=== PATIENT | female | born 1950 | race Caucasian/White ===

== ENCOUNTER 2022-01-26 09:12 | Outpatient (CLI) | payer MEDICARE, SELFPAY ==
--- NOTE | 2022-01-26 12:00 | NEURO_ITS ---
Impression: # Complains of numbness of lower extremities. # Normal nerve conduction study including peroneal and posterior tibial nerves. # Normal needle/EMG exam. # Clinical correlation recommended. Nerve Conduction Studies Anti Sensory Summary Table Stim Site NR Peak (ms) P-T Amp (?V) Site1 Site2 Delta-P (ms) Dist (cm) Wander (m/s) Left Sup Fibular Anti Sensory (Ant Lat Mall) 14 cm 4.0 3.8 14 cm Ant Lat Mall 4.0 16.0 40 Right Sup Fibular Anti Sensory (Ant Lat Mall) 14 cm 3.4 22.5 14 cm Ant Lat Mall 3.4 16.0 47 Left Sural Anti Sensory (Lat Mall) Calf 3.8 5.5 Calf Lat Mall 3.8 16.0 42 Right Sural Anti Sensory (Lat Mall) Calf 3.5 20.2 Calf Lat Mall 3.5 16.0 46 Motor Summary Table Stim Site NR Onset (ms) O-P Amp (mV) Site1 Site2 Delta-0 (ms) Dist (cm) Wander (m/s) Left Peroneal Motor (Vastus Med) Ankle 3.8 2.9 Popit Ankle 7.7 39.0 51 Popit 11.5 1.9 Right Peroneal Motor (Vastus Med) Ankle 4.1 1.2 Popit Ankle 7.9 38.0 48 Popit 12.0 1.3 Left Tibial Motor (Abd Carter Brev) Ankle 4.3 6.7 Knee Ankle 9.0 40.0 44 Knee 13.3 2.8 Right Tibial Motor (Abd Carter Brev) Ankle 4.0 7.4 Knee Ankle 9.2 39.0 42 Knee 13.2 3.3 F Wave Studies NR F-Lat (ms) L-R F-Lat (ms) Left Peroneal (Mrkrs) (EDB) 53.91 1.17 Right Peroneal (Mrkrs) (EDB) 52.73 1.17 Left Tibial (Mrkrs) (Abd Hallucis) 53.76 2.80 Right Tibial (Mrkrs) (Abd Hallucis) 56.56 2.80 EMG Side Muscle Nerve Root Ins Act Fibs Amp Dur Recrt Comment Right AntTibialis Dp Br Fibular L4-5 Nml Nml Nml Nml Nml Right Gastroc Tibial S1-2 Nml Nml Nml Nml Nml Right Fibularis Long Sup Br Fibular L5-S1 Nml Nml Nml Nml Nml Right Flex Dig Long Tibial L5-S2 Nml Nml Nml Nml Nml Right Ext Dig Brev Dp Br Fibular L5, S1 Nml Nml Nml Nml Nml Left AntTibialis Dp Br Fibular L4-5 Nml Nml Nml Nml Nml Left Gastroc Tibial S1-2 Nml Nml Nml Nml Nml Left Fibularis Long Sup Br Fibular L5-S1 Nml Nml Nml Nml Nml Left Flex Dig Long Tibial L5-S2 Nml Nml Nml Nml Nml Left Ext Dig Brev Dp Br Fibular L5, S1 Nml Nml Nml Nml Nml MTDD
== END 2022-01-26 09:13 | disposition home or self-care (01) ==
PROVIDERS: PCP Family Medicine; Visit Provider Psychiatry & Neurology Neurology
DX: G62.9 Polyneuropathy, unspecified (principal)
CPT/HCPCS: 95886; 95910

== ENCOUNTER 2024-03-06 08:05 | Outpatient (CLI) | payer MEDICARE, SELFPAY ==
--- NOTE | ~2024-03-06 | MR_ITS ---
MRI of the brain Clinical History: Migraine Technique: Axial and sagittal T1-weighted images were acquired. These were followed by axial T2-weigh jaime, diffusion weighted, gradient, and FLAIR images. Findings: There is no acute infarct, intracranial hemorrhage or mass lesion. There are several small scattered foci of hyperintense FLAIR signal in the periventricular and subcortical white matter bilat erally, most compatible with minimal chronic microvascular ischemic change. Ventricles and some arachnoid spaces are unremarkable. Orbits are unremarkable. Paranasal sinuses and mastoid air cells are clear. Major intracranial flow voids are intact. Sagittal midline structures are intact. IMPRESSION: No acute infarct, intracranial hemorrhage, or mass lesion. Probable minimal chronic microvascular ischemic change, as detailed above. Reviewed, dictated and finalized at location .
== END 2024-03-06 08:06 ==
LOC: GOSHIMG 08:08
PROVIDERS: Visit Provider Student in an Organized Health Care Education/Training Program
DX: G43.909 Migraine, unspecified, not intractable, without status migrainosus (principal)
CPT/HCPCS: 70551

== ENCOUNTER 2024-10-12 10:12 | Emergency (ER) | payer MEDICARE, SELFPAY ==
[2024-10-12] VITALS (15 sets, daily range): BP systolic 101–121; BP diastolic 60–70; PULSE 54–62; RESP 13–19; TEMP 36.4–36.7; O2SAT 96–100
--- NOTE | ~2024-10-12 | XR_ITS ---
CHEST RADIOGRAPH CLINICAL HISTORY: Lt. side chest pain x1 day . COMPARISON: None available TECHNIQUE: Single portable view of the chest. FINDINGS The cardiomediastinal silhouette is unremarkable. The lungs are clear. Visualized osseous structures and soft tissues are unremarkable. IMPRESSION: No focal infiltrate or effusion. Reviewed, dictated and finalized at location A. ARY CUSTOMER SERVICE CLERK
--- OUTSIDE RECORDS SUMMARY | 2024-10-12 10:15 | XMS_ITS | Clinical Summary ---
Author Organization [facility] Address [address] [place] [address] Care Team Providers Care Chief Environmental Commitment Officer Name Role Phone Zuleyma Motley MD Primary Care Provider [phone] Allergies Active Allergy Reactions Criticality Noted Date Comments Tape Unknown 12/27/2021 Ciprofloxacin Unknown 12/27/2021 Venlafaxine Unknown 03/07/2019 Medications multi vitamin/minera ls tablet Take 1 tablet by mouth daily. Active glucosamine-ch ondroitin 500-400 MG Cap Take 1 capsule by mouth daily. Active magnesium oxide 250 MG tablet Take 1 tablet (250 mg total) by mouth 2 (two) times daily. Active cyclobenzaprin e 10 MG tablet Take 0.5 tablets (5 mg total) by mouth nightly at bedtime. Active rosuvastatin 5 MG tablet Take 1 tablet (5 mg total) by mouth nightly at bedtime. 0 Active UBRELVY 100 MG tablet Take 1 tablet (100 mg total) by mouth 2 (two) times daily as needed for Migraine. On hold 2 Active triamcinolone 0.1 % cream APPLY CREAM TWO TIMES DAILY NEEDED 2 Active AIMOVIG, 140 MG DOSE, 70 MG/ML Solution Auto-injector 2 Active meclizine (ANTIVERT) 25 MG tablet 1-2 tablets three times a day as needed for dizziness 20 tablet 3 Active polyethylene glycol (GLYCOLAX) packet Take 240 mLs (17 g total) by mouth every other day. Dissolve powder in 240 mL water Active dexlansoprazol e (DEXILANT) 60 MG capsule Take 1 capsule (60 mg total) by mouth daily. Active mirtazapine (REMERON) 7.5 MG Tab tablet Take 1 tablet (7.5 mg total) by mouth daily. 4 Active cholestyramine (QUESTRAN) 4 GM/DOSE powder Take 1 packet (4 g total) by mouth daily. Active loratadine (CLARITIN) 10 MG tablet Take 1 tablet (10 mg total) by mouth daily. Active lisinopril (PRINIVIL) 2.5 MG tablet Take 1 tablet (2.5 mg total) by mouth daily. 90 tablet 5 Active aspirin EC (ECOTRIN) 81 MG tablet Take 1 tablet (81 mg total) by mouth daily. Active metoprolol succinate ER (TOPROL XL) 12.5 mg TABLET SR 24 HR 24 hr tablet Take 1 split tab (12.5 mg total) by mouth daily. 45 split tab 3 5 Active timolol (TIMOPTIC) 0.5 % ophthalmic solution Place 1 drop into both eyes 2 (two) times daily. 09/14/19 25 Discontinue d(Discontin ued by another clinician) metoprolol succinate ER (TOPROL XL) 12.5 mg TABLET SR 24 HR 24 hr tablet Take 1 split tab (12.5 mg total) by mouth daily. 45 split tab 1 5 09/17/19 25 Discontinue d(Reorder) Active Problems Problem Noted Date Diagnosed Date NSTEMI (non-ST elevated myoc ardial infarction) ([facility]) 08/18/2024 Encounters Date Type Department Care Team Description 10/02/2024 Telephone [facility] [facility] [address] [place] [address] Estela Mera, ANP-BC Lab Results 10/01/2024 8:17 AM PROCUREMENT REPRESENTATIVE - 10/01/2024 11:59 PM [facility] Hospital Encounter [facility] [address] [place] [address] Estela Mera, ANP-BC Discharge Disposition: Home or Self Care (Routine Discharge) 10/01/2024 Travel 09/26/2024 Telephone [facility] [address] [place] [address] Estela Mera, ANP-BC Record Request ([facility]) 09/17/2024 Telephone [facility] [address] [place] [phone] [phone] Estela Mera, ANP-BC Refill Request; Question 09/15/2024 Telephone [facility] [address] [place] [phone] [phone] Estela Mera, ANP-BC Schedule Test 09/10/2024 2:24 PM PROCUREMENT REPRESENTATIVE - 09/10/2024 11:59 PM PROCUREMENT REPRESENTATIVE Hospital Encounter [facility] [address] [facility] [place] [address] Estela Mera, ANP-BC Discharge Disposition: Home or Self Care (Routine Discharge) 09/10/2024 Travel 09/08/2024 2:30 PM PROCUREMENT REPRESENTATIVE Office Visit [facility] [address] [place] [address] Estela Mera, ANP-BC Follow Up 09/08/2024 Travel 08/29/2024 Telephone [facility] [address] [place] [address] Marisela Ryamond MD Question 08/18/2024 4:07 PM PROCUREMENT REPRESENTATIVE - 08/20/2024 11:15 AM PROCUREMENT REPRESENTATIVE Hospital Encounter [facility] [address] [place] [address] Sea Wadsworth MD Sonani, Bhavin V., MD Yaseen, Maryam, MD Discharge Disposition: Home or Self Care (Routine Discharge) 08/18/2024 11:09 AM PROCUREMENT REPRESENTATIVE - 08/18/2024 2:30 PM PROCUREMENT REPRESENTATIVE Emergency [facility] [address] [place] [address] Kathy Ibrahim DO Urinary Frequency; Chest Pain Discharge Disposition: Transfer to Acute Care Hospital 08/18/2024 Travel from Last 3 Months Immunizations Name Administration Dates Next Due Tdap (Boostrix) 06/16/2023 Family History Medical History Relation Comments Cancer Brother Alcohol Abuse Father Arthritis Father Diabetes Father Heart Disease Father Kidney Disease Father Vision loss Maternal Grandmother Depression Mother Heart Disease Mother Mental Health Mother Relation Status Comments Brother Father Maternal Grandmother Mother Social History Tobacco Use Types Packs/Day Years Used Date Smoking Tobacco: Never Smokeless Tobacco: Never Tobacco Cessation:Counseling Given: Not Answered Alcohol Use Standard Drinks/Week Comments No 0 (1 standard drink = 0.6 oz pur e alcohol) B1300 Health Literacy Answer Date Recor ded How often do you need to hav e someone help you when you read instructions, pamphlets, or other written material from your doctor or pharmacy? Never 08/18/2024 [facility] Utilities Answer Date Recorded In the past 12 months has [facility] [employer], oil, or water [employer] threatened to shut off services in your home? No 08/18/2024 Humiliation, Afraid, Rape, and Kick questionnair e Answer Date Recorded Within the last year, have y ou been afraid of your partner or ex-partner? No 08/18/2024 Within the last year, have y ou been humiliated or emotionally abused in other ways by your partner or ex-partner? No Within the last year, have y ou been kicked, hit, slapped, or otherwise physically hurt by your partner or ex-partner? No 08/18/2024 Within the last year, have y ou been raped or forced to have any kind of sexual activity by your partner or ex-partner? No 08/18/2024 AUDIT-C Answer Date Recorded Q1: How often do you have a drink containing alcohol? Never 08/18/2024 Q2: How many drinks containi ng alcohol do you have on a typical day when you are drinking? Patient does not drink Q3: How often do you have si x or more drinks on one occasion? Never 08/18/2024 Overall Financial Resource Strain (CARDIA) Answe r Date Recorded How hard is it for you to pa y for the very basics like food, housing, medical care, and heating? Not hard at all 08/18/2024 Hunger Vital Sign Answer Date Recorded Within the past 12 months, y ou worried that your food would run out before you got the money to buy more. Never true 08/18/20 24 Within the past 12 months, t he food you bought just didn't last and you didn't have money to get more. Never true 08/18/2024 PRAPARE - Transportation Answer Date Re corded In the past 12 months, has l ack of transportation kept you from medical appointments or from getting medications? No 07/28 In the past 12 months, has l ack of transportation kept you from meetings, work, or from getting things needed for daily living? No 08/18/2024 Housing Stability Vital Sign Answer Jorge e Recorded In the last 12 months, was t here a time when you were not able to pay the mortgage or rent on time? No 08/18/2024 In the past 12 months, how m any times have you moved where you were living? 0 08/18/2024 At any time in the past 12 m [facility], were you homeless or living in a fci (including now)? No 08/18/2024 Comments No Sex and Gender Information Value Date Recorded Sex Assigned at Female 09/10/2024 2:22 PM PROCUREMENT REPRESENTATIVE Legal Sex Female 10:54 PM PROCUREMENT REPRESENTATIVE Gender Identity Female 11/01/2021 6:23 AM PROCUREMENT REPRESENTATIVE Sexual Orientation Straight 11/01/2021 6: 23 AM PROCUREMENT REPRESENTATIVE Last Filed Vital Signs Vital Sign Reading Time Taken Comments Blood Pressure 110/60 09/08/2024 2:40 PM PROCUREMENT REPRESENTATIVE Pulse 56 09/08/2024 2:35 PM PROCUREMENT REPRESENTATIVE Temperature 36.6 C (97.9 F) 08/20/2024 7:33 AM PROCUREMENT REPRESENTATIVE Respiratory Rate 16 09/08/2024 2:35 PM PROCUREMENT REPRESENTATIVE Oxygen Saturation 100% 08/20/2024 7:33 AM PROCUREMENT REPRESENTATIVE Inhaled Oxygen Concentration - - Weight 56.7 kg (125 lb) 09/08/2024 2:35 PM PROCUREMENT REPRESENTATIVE Height 162.6 cm (5' 4 ) 09/08/2024 2:35 PM PROCUREMENT REPRESENTATIVE Body Mass Index 21.46 09/08/2024 2:35 PM PROCUREMENT REPRESENTATIVE Plan of Treatment Upcoming Encounters Date Type Department Care Team (Late st Contact Info) Description 10/13/2024 3:00 PM PROCUREMENT REPRESENTATIVE Appointment [facility] [address] [place] [address] Estela Mrea, ANP-BC [address] [place] [address] 11/11/2024 9:[address] [facility] [address] [place] [address] Madalyn Mackenzie, PA-C [address] [place] [address] Health Maintenance Due Date Last Done Comments ASCVD LDL 1950 ASCVD Statin 1950 Pneumococcal Vaccine: 65+ Years (1 of 2 - PCV) 1958 RSV Immunization or 60+ Years (1 - Risk 60-74 years 1-dose series) 2012 Annual Medicare Wellness Visit 2017 Zoster Vaccines (2 of 2) 11/05/2019 09/10/2019 COVID-19 Vaccine ( season) 2024 06/03/2021, 11/05/2020, 10/15/2020 Influenza Adult (#1) 2024 06/12/2017 Mammogram Screening 11/05/2025 11/06/2023, 11/02/2022, 11/01/2021, Additional history exists Colorectal Cancer Screening Colonoscopy (10 Years) 01/04/2032 01/03/2022, 01/03/2022 DTaP, Tdap and Td Vaccines (2 - Td or Tdap) 06/16/2033 06/16/2023 Dexa Scan (General) Completed 11/28/2022, Hepatitis C Completed 02/21/2024, 02/21/2024 Meningococcal B Vaccine Aged Out No l onger eligible based on patient's age to complete this topic Meningococcal Vaccine Aged Out No harika meg eligible based on patient's age to complete this topic RSV Immunizations Under 20 Months Aged Out No longer eligible based on patient's age to complete this topic Procedures Procedure Name Priority Date/Time Associated Diagnosis Comments BASIC METABOLIC PANEL Routine 10/01/2024 8:24 AM PROCUREMENT REPRESENTATIVE Takotsubo cardiomyopathy Coronary artery disease involving tejon coronary artery of tejon heart without angina pectoris Abnormal kidney function BASIC METABOLIC PANEL Routine 09/10/2024 2:40 PM PROCUREMENT REPRESENTATIVE Coronary artery disease involving tejon coronary artery of tejon heart without angina pectoris Takotsubo cardiomyopathy PROTHROMBIN TIME, VENOUS Routine 08/20/2024 6:48 AM PROCUREMENT REPRESENTATIVE CBC, AUTO, NO DIFF Routine 08/20/2024 6: 48 AM PROCUREMENT REPRESENTATIVE BASIC METABOLIC PANEL Routine 08/20/2024 6:48 AM PROCUREMENT REPRESENTATIVE USE ECHOCARDIOGRAM W CON Today 08/19/2024 11:20 AM PROCUREMENT REPRESENTATIVE XA LHC POSS Today 08/19/2024 8:58 AM PROCUREMENT REPRESENTATIVE HEPARIN, ANTI XA, UFH TIMED 08/19/2024 6:31 AM PROCUREMENT REPRESENTATIVE PROTHROMBIN TIME, VENOUS Routine 08/19/2024 6:31 AM PROCUREMENT REPRESENTATIVE MAGNESIUM Routine 08/19/2024 6:31 AM PROCUREMENT REPRESENTATIVE BASIC METABOLIC PANEL Routine 08/19/2024 6:31 AM PROCUREMENT REPRESENTATIVE CBC W/DIFF AUTOMATED Routine 08/19/2024 6:31 AM PROCUREMENT REPRESENTATIVE HEPARIN, ANTI XA, UFH TIMED 08/19/2024 12:02 AM PROCUREMENT REPRESENTATIVE TROPONIN, QUANT TIMED 08/19/2024 12:02 AM PROCUREMENT REPRESENTATIVE PROTHROMBIN TIME, VENOUS STAT 08/18/2024 5:01 PM PROCUREMENT REPRESENTATIVE HEPARIN, ANTI XA, UFH STAT 08/18/2024 5:01 PM PROCUREMENT REPRESENTATIVE TROPONIN, QUANT TIMED 08/18/2024 5:01 PM PROCUREMENT REPRESENTATIVE ECG 12-LEAD Routine 08/18/2024 4:53 PM PROCUREMENT REPRESENTATIVE TROPONIN, QUANT STAT 08/18/2024 1:12 PM PROCUREMENT REPRESENTATIVE HC URINALYSIS AUTO W/MICRO STAT 08/18/2024 12:50 PM PROCUREMENT REPRESENTATIVE XR CHEST PA+LAT STAT 08/18/2024 12:[address] ABD+PEL W CON STAT 08/18/2024 11:5 8 AM PROCUREMENT REPRESENTATIVE CRITICAL CARE Routine 08/18/2024 11:41 AM PROCUREMENT REPRESENTATIVE HEPARIN, ANTI XA, UFH STAT 08/18/2024 11:41 AM PROCUREMENT REPRESENTATIVE TROPONIN, QUANT STAT 08/18/2024 11:41 AM PROCUREMENT REPRESENTATIVE LIPASE STAT 08/18/2024 11:41 AM PROCUREMENT REPRESENTATIVE COMPREHENSIVE METABOLIC PANEL STAT 08/18/2024 11:41 AM PROCUREMENT REPRESENTATIVE CBC W/DIFF AUTOMATED STAT 08/18/2024 11:41 AM PROCUREMENT REPRESENTATIVE PROTHROMBIN TIME, VENOUS STAT 08/18/2024 11:40 AM PROCUREMENT REPRESENTATIVE ECG 12-LEAD Routine 08/18/2024 11:17 AM PROCUREMENT REPRESENTATIVE MG SCREENING W BRUCE LORENE DIGI Routine 11/06/2023 8:54 AM CDT Visit for screening mammogram BONE DENSITY/DEXA Routine 11/28/2022 9:3 4 AM CDT Post-menopausal COLONOSCOPY 01/03/2022 6:52 AM CDT from Last 3 Months or Most Recently Relevant to Health Maintenance Results * (ABNORMAL) BASIC METABOLIC PANEL (10/01/2024 8:24 AM [facility]) Only the most recent of4 resultswithin the time period is included. SODIUM S/P/B 133(L) 136 - 145 MMOL/L 10/01/2024 8:40 AM [facility] POTASSIUM S/P/B 4.6 3.5 - 5.1 MMOL/L 10/01/2024 8:40 AM [facility] CHLORIDE S/P/B 97(L) 98 - 107 MMOL/L 10/01/2024 8:40 AM [facility] CO2 29.3 21.0 - 32.0 MMOL/L 10/01/2024 8:40 AM [facility] GLUCOSE 85 70 - 99 MG/DL 10/01/2024 8:40 AM [facility] Comment: FASTING GLUCOSE 100 TO 125 MG/DL IS CONSISTENT WITH IMPAIRED FASTING GLUCOSE. FASTING GLUCOSE >125 MG/DL IS CONSISTENT WITH DIABETES. RANDOM GLUCOSE >200 MG/DL WITH HYPERGLYCEMIC SYMPTOMS IS CONSISTENT WITH DIABETES. PER ADA GUIDELINES BUN 11 6 - 24 MG/DL 10/01/2024 8:40 AM [facility] CREATININE S/P/B 0.72 0.55 - 1.02 MG/DL 10/01/2024 8:40 AM [facility] CALCIUM S/P/B 9.1 8.4 - 10.5 MG/DL 10/01/2024 8:40 AM [facility] ANION GAP 6.7 5.0 - 15.0 MMOL/L 10/01/2024 8:40 AM [facility] OSMOLALITY (CALC) 275 MOSM/KG 025 8:40 AM [facility] Comment:REFERENCE RANGE NOT ESTABLISHED GFR ESTIMATE 89(L) >89 ML/MIN/1. 73 M2 10/01/2024 8:40 AM [facility] GFR NOTES GFR REFERENCE S: 10/01/2024 8:40 AM [facility] Comment: THE ESTIMATED GFR IS CALCULATED USING THE 2020 CKD-EPI EQUATION. THE FOLLOWING CATEGORIES FOR GRADING RENAL FUNCTION ARE RECOMMENDED BY THE INTERNATIONAL SOCIETY OF NEPHROLOGY (KDIGO 2012 CLINICAL PRACTICE GUIDELINE). G1,NORMAL OR HIGH: >89 ml/min/1.73 m2 G2,MILDLY DECREASED: 60-89 ml/min/1.73 m2 G3A,MILDLY TO MODERATELY DECREASED: 45-59 ml/min/1.73 m2 G3B,MODERATELY TO SEVERELY DECREASED: 30-44 ml/min/1.73 m2 G4,SEVERELY DECREASED: 15-29 ml/min/1.73 m2 G5,KIDNEY FAILURE: <15 ml/min/1.73 m2 10/01/2024 8:24 AM PROCUREMENT REPRESENTATIVE Estela Mera [facility] Final Re sult [facility] [address] [place] [address], * PROTIME/INR, VENOUS (PROTHROMBIN TIME) (08/20/2024 6:48 AM PROCUREMENT REPRESENTATIVE) Only the most recent of4 resultswithin the time period is included. PROTIME 10.9 9.4 - 12.5 SEC 08/20/2024 7:21 AM PROCUREMENT REPRESENTATIVE [facility] INR 0.9 0.8 - 1.1 08/20/2024 7:21 AM PROCUREMENT REPRESENTATIVE [facility] 08/20/2024 6:48 AM PROCUREMENT REPRESENTATIVE Pallavi Montoya MD LABORATORY Final Result [facility] [address] [place] [address], [place] [phone] [id number] * (ABNORMAL) CBC, AUTO, NO DIFF (08/20/2024 6:48 AM PROCUREMENT REPRESENTATIVE) WBC 4.29 4.00 - 10.80 x10'3/uL 08/20/2024 6:58 AM PROCUREMENT REPRESENTATIVE [facility] RBC 3.92(L) 4.10 - 5.40 x10'6/uL 08/20/2024 6:58 AM PROCUREMENT REPRESENTATIVE [facility] HGB 12.5 12.0 - 16.0 G/DL 08/20/2024 6:58 AM [facility] HCT 36.9 36.0 - 47.0 % 08/20/2024 6:58 AM PROCUREMENT REPRESENTATIVE [facility] MCV 94.1 78.0 - 100.0 FL 08/20/2024 6:58 AM PROCUREMENT REPRESENTATIVE [facility] MCH 31.9(H) 27.0 - 31.0 PG 08/20/2024 6:58 AM PROCUREMENT REPRESENTATIVE [facility] MCHC 33.9 33.0 - 36.0 G/DL 08/20/2024 6:58 AM [facility] RDW 12.7 11.5 - 14.5 % 08/20/2024 6:58 AM [facility] PLT SEE NOTE 150 - 350 x10'3/uL 08/20/2024 7:14 AM PROCUREMENT REPRESENTATIVE [facility] Comment: Platelet clumps present. Estimate from slide appears to be within normal range. Reorder Platelet Count if actual value is clinically significant. 08/20/2024 6:48 AM PROCUREMENT REPRESENTATIVE Pallavi Montoya MD LABORATORY Final Result [facility] [address] [place] [address], [id number] * USE ECHOCARDIOGRAM W CON (08/19/2024 11:20 AM PROCUREMENT REPRESENTATIVE) Anatomical Region Laterality Modality NA Echocardiogram 08/19/2024 10:1 1 AM PROCUREMENT REPRESENTATIVE Narrative 08/19/2024 6:08 PM PROCUREMENT REPRESENTATIVE Echocardiography Report Pat.Name: LATOSHA HERNÁNDEZ Pat.ID: [id number] .Date: 08/19/2024 : [id number] PATRICE HADPROV EWDPROV Exam Time: 10:11:00 AM Study Type:ECHO W/CONTRAST COMPLETE Height: 64 in Weight: 123 lb BSA: 1.59 m2 Age: 12 1950,73Y Sex: F BP: 117/60 HR: 59 bpm Sonogrphr: Ricki Araya RDCS Pat. Stat.:Inpatient Room: 614 CPT - 4: C8929 Reason for Study:NSTEMI Procedures: 2D, M-mode, Doppler, Color Flow, Definity was used to enhance endocardial definition. Portable ++++++++++++++++++++++++++++++++++++ SUMMARY: ++++++++++++++++++++++++++++++++++++ The left ventricular systolic function is mildly depressed. The calculated ejection fraction is 44%. Left ventricular diastolic function is normal. Mid Anterior, Mid Anteroseptal, Mid Inferolateral, Mid Anterolateral hawkins are akinetic. Mid Inferoseptal, Mid Inferior, Apical Inferior hawkins are hypokinetic (apical ballooning). Trivial anterior pericardial effusion is noted. Trace pulmonic regurgitation. A trace of tricuspid regurgitation. ++++++++++++++++++++++++++++++++++++ FINDINGS: ++++++++++++++++++++++++++++++++++++ LV: The left ventricular size is normal. The left ventricular systolic function is mildly depressed. The calculated ejection fraction is 44%. The average E/e' is normal at <8. Left ventricular diastolic function is normal. Mid Anterior, Mid Anteroseptal, Mid Inferolateral, Mid Anterolateral hawkins are akinetic. Mid Inferoseptal, Mid Inferior, Apical Inferior hawkins are hypokinetic. RV: The right ventricular size is normal. Right ventricular systolic function is normal. TAPSE = 18mm (<16 mm indicates systolic RV dysfunction). LA: The left atrial volume is normal ( less than 34 ml/M2). RA: Right atrial size is normal. IAS: Atrial septum appears intact. The atrial septum appears aneurysmal. RADHA: Trivial anterior pericardial effusion is noted. AO: Aorta not well visualized. The aortic root measures 3.2 cm. PA: The peak pulmonary artery systolic pressure is estimated to be approximately 17 mmHg. Estimated right atrial pressure of 3 mmHg. PVn: Pulmonary veins are not assessable. SVn: Inferior vena cava shows >50% collapse with respiration consistent with normal right atrial pressure. AV: No evidence of aortic valve stenosis. No evidence of aortic regurgitation. MV: No evidence of mitral regurgitation. No evidence of mitral valve stenosis. PV: Trace pulmonic regurgitation. No evidence of pulmonic valve stenosis. TV: Structurally normal tricuspid valve. A trace of tricuspid regurgitation. No evidence of tricuspid valve stenosis. ++++++++++++++++++++++++++++++++++++ MEASUREMENTS: ++++++++++++++++++++++++++++++++++++ DOPPLER LVOT LVOTpkPG 2 mmHg LVOTmnPG 1 mmHg LVOTpkVel 72.5 cm/s (70-110) LVOT SV 54 ml LVOT TVI 16.3 cm LVOT CO 53.3 ml/s AV Forward Flow AV TVI 23.8 cm AV pkPG 5 mmHg AV pkVel 107 cm/s (100-170) Area (TVI) 2.28 cm2 (3-5)* AV mnVel 73.8 cm/s Area (Wander) 2.26 cm2 (3-5)* AV mnPG 2 mmHg MV Forward Flow MV DeTm 201 msec MV pkPG 2 mmHg MVA P1/2t 3.73 cm2 (4-6)* MV E/A 1.1 MV P1/2t 59 msec (30-60)+ MV pkE 55.7 cm/s (60-130)* MV mnPG 1 mmHg MV pkA 51.8 cm/s PV Forward Flow PV pkVel 58.9 cm/s (60-90)* PV pkPG 1 mmHg TV Regurg Flow TV pkPG 14 mmHg TV pkVel 185 cm/s (30-70)* Lat E' Lat e 8.92 cm/s Lat E/E' Lat E/e 6.2 Med E' Med e 5.55 cm/s Med E/E' Med E/e 10 Aortic Valve Aortic Valve Ar 1.43 Aortic Valve Ve 0.68 AV DI Value 0.7 KARELY (VTI) Index Value 1.43 LV Mass 2D Value 98.2 g LV Mass [id number] Value 61.8 g/m2 Right Ventricle Right Ventricle 12.1 cm/s 2D Left Ventricle LVIDd 4.11 cm (3.6-5.2) LV EF(Bi-Plane) 43.7 % (55-75)* LVIDs 3.38 cm (2.3-3.9) LVPW LVPWd 0.853 cm Ventricular Septum IVSd 0.753 cm Left Atrium LA a-p 2.55 cm (2.8-3.4)* Aorta Ao Rtd 3.23 cm (zsc 2.4)* LVOT LVOT 2.06 cm Ratios IVS LA Biplane LAVol I BP 23.8 ml/m2 Right Ventricle Right Ventricle 3.13 cm Right Ventricle 2.14 cm MMODE TA Tricuspid Annul 1.77 cm ++++++++++++++++++++++++++++++++++++ WALL MOTION: ++++++++++++++++++++++++++++++++++++ RESTING WALL MOTION: Mid Anterior, Mid Anteroseptal, Mid Inferolateral, Mid Anterolateral hawkins are akinetic. Mid Inferoseptal, Mid Inferior, Apical Inferior hawkins are hypokinetic. Wall Index = 2.6 <Electronic Signature> 08/19/2024 06:08 PM Marisela Raymond M.D. Procedure Note Marisela Raymond MD - 08/19/2024 Echocardiography Report Pat.Name: EDGAR LATOSHA Smith Pat.ID: [id number] .Date: 08/19/2024 : [id number] PATRICE CHAVEZ EWDPROV EWDPROV Exam Time: 10:11:00 AM Study Type:ECHO W/CONTRAST COMPLETE Height: 64 in Weight: 123 lb BSA: 1.59 m2 Age: 12 1950,73Y Sex: F BP: 117/60 HR: 59 bpm Sonogrphr: Ricki Araya [facility] Pat. Stat.:Inpatient Room: 614 CPT - 4: C8929 Reason for Study:NSTEMI Procedures: 2D, M-mode, Doppler, Color Flow, Definity was used to enhance endocardial definition. Portable ++++++++++++++++++++++++++++++++++++ SUMMARY: ++++++++++++++++++++++++++++++++++++ The left ventricular systolic function is mildly depressed. The calculated ejection fraction is 44%. Left ventricular diastolic function is normal. Mid Anterior, Mid Anteroseptal, Mid Inferolateral, Mid Anterolateral hawkins are akinetic. Mid Inferoseptal, Mid Inferior, Apical Inferior hawkins are hypokinetic (apical ballooning). Trivial anterior pericardial effusion is noted. Trace pulmonic regurgitation. A trace of tricuspid regurgitation. ++++++++++++++++++++++++++++++++++++ FINDINGS: ++++++++++++++++++++++++++++++++++++ LV: The left ventricular size is normal. The left ventricular systolic function is mildly depressed. The calculated ejection fraction is 44%. The average E/e' is normal at <8. Left ventricular diastolic function is normal. Mid Anterior, Mid Anteroseptal, Mid Inferolateral, Mid Anterolateral hawkins are akinetic. Mid Inferoseptal, Mid Inferior, Apical Inferior hawkins are hypokinetic. RV: The right ventricular size is normal. Right ventricular systolic function is normal. TAPSE = 18mm (<16 mm indicates systolic RV dysfunction). LA: The left atrial volume is normal ( less than 34 ml/M2). RA: Right atrial size is normal. IAS: Atrial septum appears intact. The atrial septum appears aneurysmal. RADHA: Trivial anterior pericardial effusion is noted. AO: Aorta not well visualized. The aortic root measures 3.2 cm. PA: The peak pulmonary artery systolic pressure is estimated to be approximately 17 mmHg. Estimated right atrial pressure of 3 mmHg. PVn: Pulmonary veins are not assessable. SVn: Inferior vena cava shows >50% collapse with respiration consistent with normal right atrial pressure. AV: No evidence of aortic valve stenosis. No evidence of aortic regurgitation. MV: No evidence of mitral regurgitation. No evidence of mitral valve stenosis. PV: Trace pulmonic regurgitation. No evidence of pulmonic valve stenosis. TV: Structurally normal tricuspid valve. A trace of tricuspid regurgitation. No evidence of tricuspid valve stenosis. ++++++++++++++++++++++++++++++++++++ MEASUREMENTS: ++++++++++++++++++++++++++++++++++++ DOPPLER LVOT LVOTpkPG 2 mmHg LVOTmnPG 1 mmHg LVOTpkVel 72.5 cm/s (70-110) LVOT SV 54 ml LVOT TVI 16.3 cm LVOT CO 53.3 ml/s AV Forward Flow AV TVI 23.8 cm AV pkPG 5 mmHg AV pkVel 107 cm/s (100-170) Area (TVI) 2.28 cm2 (3-5)* AV mnVel 73.8 cm/s Area (Wander) 2.26 cm2 (3-5)* AV mnPG 2 mmHg MV Forward Flow MV DeTm 201 msec MV pkPG 2 mmHg MVA P1/2t 3.73 cm2 (4-6)* MV E/A 1.1 MV P1/2t 59 msec (30-60)+ MV pkE 55.7 cm/s (60-130)* MV mnPG 1 mmHg MV pkA 51.8 cm/s PV Forward Flow PV pkVel 58.9 cm/s (60-90)* PV pkPG 1 mmHg TV Regurg Flow TV pkPG 14 mmHg TV pkVel 185 cm/s (30-70)* Lat E' Lat e 8.92 cm/s Lat E/E' Lat E/e 6.2 Med E' Med e 5.55 cm/s Med E/E' Med E/e 10 Aortic Valve Aortic Valve Ar 1.43 Aortic Valve Ve 0.68 AV DI Value 0.7 KARELY (VTI) Index Value 1.43 LV Mass 2D Value 98.2 g LV Mass Ekitx9I Value 61.8 g/m2 Right Ventricle Right Ventricle 12.1 cm/s 2D Left Ventricle LVIDd 4.11 cm (3.6-5.2) LV EF(Bi-Plane) 43.7 % (55-75)* LVIDs 3.38 cm (2.3-3.9) LVPW LVPWd 0.853 cm Ventricular Septum IVSd 0.753 cm Left Atrium LA a-p 2.55 cm (2.8-3.4)* Aorta Ao Rtd 3.23 cm (zsc 2.4)* LVOT LVOT 2.06 cm Ratios IVS LA Biplane LAVol I BP 23.8 ml/m2 Right Ventricle Right Ventricle 3.13 cm Right Ventricle 2.14 cm MMODE TA Tricuspid Annul 1.77 cm ++++++++++++++++++++++++++++++++++++ WALL MOTION: ++++++++++++++++++++++++++++++++++++ RESTING WALL MOTION: Mid Anterior, Mid Anteroseptal, Mid Inferolateral, Mid Anterolateral hawkins are akinetic. Mid Inferoseptal, Mid Inferior, Apical Inferior hawkins are hypokinetic. Wall Index = 2.6 <Electronic Signature> 08/19/2024 06:08 PM Marisela Raymond M.D. Fei Sotomayor MD ECHO Final Result * XA [facility] POSS (08/19/2024 8:58 AM PROCUREMENT REPRESENTATIVE) Anatomical Region Laterality Modality Cardiac Mobile Practice Lead 08/19/2024 8:05 AM PROCUREMENT REPRESENTATIVE us Marisela Raymond MD [facility]EL[facility] Final Result * HEPARIN, ANTI XA, UFH (08/19/2024 6:31 AM PROCUREMENT REPRESENTATIVE) Only the most recent of4 resultswithin the time period is included. HEPARIN ANTI XA UFH 0.34 0.30 - 0.70 IU/ML 08/19/2024 7:24 AM [facility] Comment: UFH Therapeutic Anti Xa Ranges: Medical Therapeutic Range: 0.30 - 0.70 IU/mL Cardiac Therapeutic Range: 0.30 - 0.50 IU/mL Neuro Therapeutic Range: 0.20 - 0.40 IU/mL 08/19/2024 6:31 AM PROCUREMENT REPRESENTATIVE Fei Sotomayor MD LABORATORY Final Result [facility] [address] [place] [address], [phone] * (ABNORMAL) CBC W/DIFF AUTOMATED (08/19/2024 6:31 AM PROCUREMENT REPRESENTATIVE) Only the most recent of2 resultswithin the time period is included. WBC 5.29 4.00 - 10.80 x10'3/uL 08/19/2024 7:03 AM [facility] RBC 3.75(L) 4.10 - 5.40 x10'6/uL 08/19/2024 7:03 AM [facility] HGB 11.8(L) 12.0 - 16.0 G/DL 08/19/2024 7:03 AM [facility] HCT 34.3(L) 36.0 - 47.0 % 08/19/2024 7:03 AM [facility] MCV 91.5 78.0 - 100.0 FL 08/19/2024 7:03 AM [facility] MCH 31.5(H) 27.0 - 31.0 PG 08/19/2024 7:03 AM [facility] MCHC 34.4 33.0 - 36.0 G/DL 08/19/2024 7:03 AM [facility] RDW 12.5 11.5 - 14.5 % 08/19/2024 7:03 AM [facility] PLT 270 150 - 350 x10'3/uL 08/19/2024 7:03 AM [facility] MPV 9.4 7.4 - 10.4 FL 08/19/2024 7:03 AM [facility] DIFFERENTIAL TYPE AUTOMATED DIFFERENTIAL 08/19/2024 7:03 AM [facility] SEG NEUTROPHILS 59.8 % 7:03 AM [facility] LYMPHOCYTES 28.0 % 08/19/2024 7:03 AM [facility] MONOCYTES 10.8 % 08/19/2024 7:03 AM [facility] EOSINOPHILS 0.8 % 08/19/2024 7:03 AM [facility] BASOPHILS 0.2 % 08/19/2024 7:03 AM [facility] IMMATURE GRANS % 0.4 % 08/19/20 7:03 AM [facility] ABS. NEUTROPHILS 3.17 1.60 - 8.30 x10'3/uL 08/19/2024 7:03 AM [facility] ABS. LYMPHOCYTES 1.48 0.80 - 4.70 x10'3/uL 08/19/2024 7:03 AM [facility] ABS. MONOCYTES 0.57 0.00 - 1.50 x10'3/uL 08/19/2024 7:03 AM [facility] ABS. EOSINOPHILS 0.04 0.00 - 0.40 x10'3/uL 08/19/2024 7:03 AM [facility] ABS. BASOPHILS 0.01 0.00 - 0.20 x10'3/uL 08/19/2024 7:03 AM [facility] ABS. IMMATURE GRANULOCYTES 0.02 0.00 - 0.03 x10'3/uL 08/19/2024 7:03 AM [facility] ABS. NUCLEATED RBC'S 0.00 0.00 - 0.01 x10'3/uL 08/19/2024 7:03 AM PROCUREMENT REPRESENTATIVE [facility] NRBC % 0.0 % 08/19/2024 7:03 AM PROCUREMENT REPRESENTATIVE [facility] 08/19/2024 6:31 AM PROCUREMENT REPRESENTATIVE us Fei Sotomayor MD LABORATORY Final Result Performing Organization Address [facility] de Phone Number [facility] [address] [place] [address], [phone] * MAGNESIUM (08/19/2024 6:31 AM PROCUREMENT REPRESENTATIVE) MAGNESIUM 1.9 1.6 - 2.6 MG/DL 08/19/2024 7:25 AM PROCUREMENT REPRESENTATIVE [facility] 08/19/2024 6:31 AM PROCUREMENT REPRESENTATIVE us Fei Sotomayor MD LABORATORY Final Result Performing Organization Address [facility] de Phone Number [facility] [address] [place] [address], [phone] * (ABNORMAL) TROPONIN, QUANT (08/19/2024 12:02 AM PROCUREMENT REPRESENTATIVE) Only the most recent of4 resultswithin the time period is included. TROPONIN I HIGH SENSITIVITY 3,011(H) 0 - 53 ng/L 08/19/2024 1:04 AM PROCUREMENT REPRESENTATIVE [facility] 08/19/2024 12:0 2 AM PROCUREMENT REPRESENTATIVE us Fei Sotomayor MD LABORATORY Final Result Performing Organization Address [facility] de Phone Number [facility] [address] [place] [address], [place] [phone] * ECG 12 lead (08/18/2024 4:53 PM PROCUREMENT REPRESENTATIVE) Only the most recent of2 resultswithin the time period is included. 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: Abdirashid Marr : 1950 Requested By: FEI SOTOMAYOR Order Number: [id number] Reading MD: Harpal Wilcox Measurements Intervals Gaines Rate: 68 P: 73 MA: 155 QRS: 32 QRSD: 99 T: 55 QT: 426 QTc: 455 Interpretive Statements SINUS RHYTHM INCOMPLETE RIGHT BUNDLE BRANCH BLOCK [90+ ms QRS DURATION, TERMINAL R IN V1/V2, 40+ ms S IN I/aVL/V4/V5/V6] UREMENT REPRESENTATIVE Procedure Note Harpal Wilcox MD - 08/19/2024 [place] [address] [place] [address] Test Date: 2024-08-18 Pat Name: LATOSHA HERNÁNDEZ Department: 1 Room: 61A Gender: Female Cl[employer] Sunglasses Inspector: Abdirashid Marr : 1950 Requested By: FEI SOTOMAYOR Order Number: [id number] Reading : Harpal Wilcox Measurements Intervals Gaines Rate: 68 P: 73 MA: 155 QRS: 32 QRSD: 99 T: 55 QT: 426 QTc: 455 Interpretive Statements SINUS RHYTHM INCOMPLETE RIGHT BUNDLE BRANCH BLOCK [90+ ms QRS DURATION, TERMINAL RIN V1/V2, 40+ ms S IN I/aVL/V4/V5/V6] UREMENT REPRESENTATIVE us Fei Sotomayor MD ECG ORDERABLES Final Result [facility] * (ABNORMAL) URINALYSIS (08/18/2024 12:50 PM PROCUREMENT REPRESENTATIVE) COLOR (U) YELLOW 08/18/2024 1:03 PM PROCUREMENT REPRESENTATIVE [facility] TRANSPARENCY CLEAR 08/18/2024 1:03 PM PROCUREMENT REPRESENTATIVE [facility] SPECIFIC GRAVITY (U) 1.015 1.000 - 1.025 08/18/2024 1:03 PM PROCUREMENT REPRESENTATIVE [facility] U PH 7.5 5.0 - 8.0 08/18/2024 1:03 PM PROCUREMENT REPRESENTATIVE [facility] LEUKOCYTES (U) NEGATIVE NEGATIVE 08/18/2024 1:03 PM PROCUREMENT REPRESENTATIVE [facility] NITRITES NEGATIVE NEGATIVE 08/18/2024 1:03 PM PROCUREMENT REPRESENTATIVE [facility] PROTEIN RANDOM (U) NEGATIVE NEGATIVE 08/18/2024 1:03 PM PROCUREMENT REPRESENTATIVE [facility] GLUCOSE (U) NEGATIVE NEGATIVE 08/18/2024 1:03 PM PROCUREMENT REPRESENTATIVE [facility] KETONES MG/DL (U) TRACE(A) NEGATIVE 08/18/2024 1:03 PM PROCUREMENT REPRESENTATIVE [facility] UROBILINOGEN 0.2 <1.0 EU/DL 08/18/2024 1:03 PM PROCUREMENT REPRESENTATIVE [facility] BILIRUBIN (U) NEGATIVE NEGATIVE 08/18/2024 1:03 PM PROCUREMENT REPRESENTATIVE [facility] BLOOD (U) NEGATIVE NEGATIVE 08/18/2024 1:03 PM PROCUREMENT REPRESENTATIVE [facility] WBC/HPF NONE SEEN(A) 0 - 5 /HPF 08/18/2024 1:03 PM PROCUREMENT REPRESENTATIVE [facility] EPI/LPF RARE /LPF 08/18/2024 1:03 PM PROCUREMENT REPRESENTATIVE [facility] URINE SPECIMEN OBTAINED BY CLEAN CATCH PROCEDURE / Unknown 08/18/2024 12:50 PM PROCUREMENT REPRESENTATIVE us Kathy Ibrahim DO URINE ORDERABLES Final Result [facility] [address] [place] [address], * XR CHEST PA+LAT (08/18/2024 12:04 PM PROCUREMENT REPRESENTATIVE) Anatomical Region Laterality Modality Chest Radiographic Henna ging 08/18/2024 12:1 9 PM PROCUREMENT REPRESENTATIVE Impressions 08/18/2024 12:20 PM PROCUREMENT REPRESENTATIVE IMPRESSION: No acute findings. Ordered By: KATHY IBRAHIM Interpreted By: Jaxon Garza MD, 08/18/2024 12:19 PM Narrative 08/18/2024 12:20 PM PROCUREMENT REPRESENTATIVE [address] [place] [address] Examination: Chest x-ray 2 view Exam time: 08/18/2024 11:59 AM Clinical history: CHEST PAIN AND FELT LIKE SHE WAS GOING TO PASS OUT AT DR OFFICE Comparison: 03/28/2023 Technique: Frontal and lateral views of the chest were obtained. Findings: The cardiac silhouette, mediastinal contours, and pulmonary vessels appear normal. Old granulomata. The lungs are clear. No pneumothorax. No consolidations or effusions are seen. Degenerative changes in the bony structures. Procedure Note Jaxon Garza MD - 08/18/[address] [place] [address] Examination: Chest x-ray 2 view Exam time: 08/18/2024 11:59 AM Clinical history: CHEST PAIN AND FELT LIKE SHE WAS GOING TO PASS OUT AT DROFFICE Comparison: 03/28/2023 Technique: Frontal and lateral views of the chest were obtained. Findings: The cardiac silhouette, mediastinal contours, and pulmonaryvessels appear normal. Old granulomata. The lungs are clear. Nopneumothorax. No consolidations or effusions are seen. Degenerativechanges in the bony structures. IMPRESSION: No acute findings. Ordered By: KATHY IBRAHIM Interpreted By: Jaxon Garza MD, 08/18/2024 12:19 PM us Kathy Ibrahim DO GENERAL IMAGING Final Result * CT ABD+PEL W CON (08/18/2024 11:58 AM PROCUREMENT REPRESENTATIVE) Anatomical Region Laterality Modality Abdomen Computed Tomogra phy 08/18/2024 12:1 5 PM PROCUREMENT REPRESENTATIVE Impressions 08/18/2024 12:19 PM PROCUREMENT REPRESENTATIVE Impression: No acute urinary tract finding. Moderate feces burden. No acute GI tract disease. Diffuse fatty liver disease. Left-sided gonadal vein/pelvic congestion. Ordered By: KATHY IBRAHIM Interpreted By: Jaxon Garza MD, 08/18/2024 12:15 PM Narrative 08/18/2024 12:19 PM PROCUREMENT REPRESENTATIVE [address] [place] [address] Examination: CT abdomen and pelvis with IV contrast. Exam Date: 08/18/2024 11:50 AM Indication: URINARY FREQ CHEST PAIN AND FELT LIKE SHE WAS GOING TO PASS OUT AT THE DR OFFICE SO THEY SENT HER HERE Comparison:06/03/2023 Technique: IV contrast: 87cc Isovue 370 Oral contrast: None. Technical comments: Standard technique. Dose reduction: This CT exam was performed using one or more of the following dose reduction techniques: Automated exposure control, adjustment of the mA and/or kV according to patient size, and/or use of iterative reconstruction technique. Findings: Diffuse fatty liver change without cirrhosis or mass. Patent portal veins. No splenic enlargement or ascites. No pancreatitis. No gallstones or cholecystitis. Symmetric kidneys. No kidney mass or obstruction. No pyelonephritis or renal abscess. No perinephric fluid collection. No adrenal mass. Chronic flattening of the left renal vein as it crosses between the aorta and superior mesenteric artery. Mild prominent left-sided lumbar vein and left-sided gonadal vein. Gonadal vein is tortuous in the left hemipelvis. Similar flattening of the duodenum as it crosses between the aorta and SMA. This is chronic. Uterus and bilateral adnexa without mass. Moderate feces burden. No appendicitis or diverticulitis. No GI tract obstruction or inflammation. No bladder stone or thickening. No pelvic fluid or inflammation. No free air. No adenopathy. No aortic dissection or aneurysm. Arterial calcifications. No adenopathy. Osteoporosis. Degenerative changes in the bony structures. No lung base pneumonia or effusions. Procedure Note Jaxon Garza MD - 08/18/2024 [place] [address] [place] [address] Examination: CT abdomen and pelvis with IV contrast. Exam Date: 08/18/2024 11:50 AM Indication: URINARY FREQ CHEST PAIN AND FELT LIKE SHE WAS GOING TO PASS OUT AT THE DR OFFICE [facility] SENT HER HERE Comparison:06/03/2023 Technique: IV contrast: 87cc Isovue 370 Oral contrast: None. Technical comments: Standard technique. Dose reduction: This CT exam was performed using one or more of thefollowing dose reduction techniques: Automated exposure control,adjustment of the mA and/or kV according to patient size, and/or use ofiterative reconstruction technique. Findings: Diffuse fatty liver change without cirrhosis or mass. Patentportal veins. No splenic enlargement or ascites. No pancreatitis. Nogallstones or cholecystitis. Symmetric kidneys. No kidney mass orobstruction. No pyelonephritis or renal abscess. No perinephric fluidcollection. No adrenal mass. Chronic flattening of the left renal vein asit crosses between the aorta and superior mesenteric artery. Mildprominent left-sided lumbar vein and left-sided gonadal vein. Gonadal veinis tortuous in the left hemipelvis. Similar flattening of the duodenum asit crosses between the aorta and SMA. This is chronic. Uterus andbilateral adnexa without mass. Moderate feces burden. No appendicitis ordiverticulitis. No GI tract obstruction or inflammation. No bladder stoneor thickening. No pelvic fluid or inflammation. No free air. Noadenopathy. No aortic dissection or aneurysm. Arterial calcifications. Noadenopathy. Osteoporosis. Degenerative changes in the bony structures. Nolung base pneumonia or effusions. Impression: No acute urinary tract finding. Moderate feces burden. No acute GI tract disease. Diffuse fatty liver disease. Left-sided gonadal vein/pelvic congestion. Ordered By: KATHY IBRAHIM Interpreted By: Jaxon Garza MD, 08/18/2024 12:15 PM us Kathy Ibrahim DO CT Final Result * Critical Care (08/18/2024 11:41 AM PROCUREMENT REPRESENTATIVE) Kathy Rosado DO - 08/18/2024 11:41 AM BABITA Ibrahim DO 08/18/2024 2:54 PM Critical Care Performed by: Kathy Ibrahim DO Authorized by: Kathy Ibrahim DO Critical care provider statement: Critical care time (minutes): 65 Critical care start time: 08/18/2024 1:00 PM Critical care end time: 08/18/2024 2:05 PM Critical care was necessary to treat or prevent imminent or life-threatening deterioration of the following conditions: Cardiac failure Critical care was time spent personally by me on the following activities: Blood draw for specimens, development of treatment plan with patient or surrogate, discussions with consultants, evaluation of patient's response to treatment, examination of patient, ordering and performing treatments and interventions, ordering and review of laboratory studies, ordering and review of radiographic studies, pulse oximetry, re-evaluation of patient's condition and review of old charts I assumed direction of critical care for this patient from another provider in my specialty: no Care discussed with: admitting provider Kathy Ibrahim DO PROCEDURE/MINOR SURGICAL ORDER SAROJ Final Result * (ABNORMAL) COMPREHENSIVE METABOLIC PANEL (08/18/2024 11:41 AM PROCUREMENT REPRESENTATIVE) SODIUM S/P/B 132(L) 136 - 145 MMOL/L 08/18/2024 12:11 PM [facility] POTASSIUM S/P/B 4.3 3.5 - 5.1 MMOL/L 08/18/2024 12:11 PM [facility] CHLORIDE S/P/B 96(L) 98 - 107 MMOL/L 08/18/2024 12:11 PM [facility] CO2 28.7 21.0 - 32.0 MMOL/L 08/18/2024 12:11 PM [facility] GLUCOSE 100(H) 70 - 99 MG/DL 08/18/2024 12:11 PM [facility] Comment: FASTING GLUCOSE 100 TO 125 MG/DL IS CONSISTENT WITH IMPAIRED FASTING GLUCOSE. FASTING GLUCOSE >125 MG/DL IS CONSISTENT WITH DIABETES. RANDOM GLUCOSE >200 MG/DL WITH HYPERGLYCEMIC SYMPTOMS IS CONSISTENT WITH DIABETES. PER ADA GUIDELINES BUN 17 6 - 24 MG/DL 08/18/2024 12:11 PM [facility] CREATININE S/P/B 0.80 0.55 - 1.02 MG/DL 08/18/2024 12:11 PM [facility] CALCIUM S/P/B 8.5 8.4 - 10.5 MG/DL 08/18/2024 12:11 PM [facility] BILIRUBIN TOTAL S/P/B 0.5 0.2 - 1.0 MG/DL 08/18/2024 12:11 PM [facility] Comment: THIS ASSAY IS NOT RECOMMENDED FOR PATIENTS UNDERGOING TREATMENT WITH ELTROMBOPAG DUE TO THE POTENTIAL FOR FALSELY ELEVATED RESULTS. ALKALINE PHOSPHATASE S/P/B 82 55 - 142 U/L 08/18/2024 12:11 PM [facility] AST 26 15 - 37 U/L 08/18/2024 12:11 PM [facility] ALT 24 14 - 59 U/L 08/18/2024 12:11 PM [facility] TOTAL PROTEIN S/P/B 6.9 6.4 - 8.2 G/DL 08/18/2024 12:11 PM [facility] ALBUMIN S/P/B 3.5 3.4 - 5.0 G/DL 08/18/2024 12:11 PM [facility] ANION GAP 7.3 5.0 - 15.0 MMOL/L 08/18/2024 12:11 PM [facility] OSMOLALITY (CALC) 276 MOSM/KG 024 12:11 PM [facility] Comment:REFERENCE RANGE NOT ESTABLISHED GFR ESTIMATE 79(L) >89 ML/MIN/1. 73 M2 08/18/2024 12:11 PM [facility] GFR NOTES GFR REFERENCE S: 08/18/2024 12:11 PM [facility] Comment: THE ESTIMATED GFR IS CALCULATED USING THE 2020 CKD-EPI EQUATION. THE FOLLOWING CATEGORIES FOR GRADING RENAL FUNCTION ARE RECOMMENDED BY THE INTERNATIONAL SOCIETY OF NEPHROLOGY (KDIGO 2012 CLINICAL PRACTICE GUIDELINE). G1,NORMAL OR HIGH: >89 ml/min/1.73 m2 G2,MILDLY DECREASED: 60-89 ml/min/1.73 m2 G3A,MILDLY TO MODERATELY DECREASED: 45-59 ml/min/1.73 m2 G3B,MODERATELY TO SEVERELY DECREASED: 30-44 ml/min/1.73 m2 G4,SEVERELY DECREASED: 15-29 ml/min/1.73 m2 G5,KIDNEY FAILURE: <15 ml/min/1.73 m2 08/18/2024 11:4 1 AM PROCUREMENT REPRESENTATIVE Kathy Ibrahim LABORATORY Final Result Performing Organization Address [facility] Co de Phone Number [facility] [address] [place] [address], [place] [phone] * LIPASE (08/18/2024 11:41 AM PROCUREMENT REPRESENTATIVE) LIPASE 58 16 - 77 UNITS/L 08/18/2024 12:11 PM PROCUREMENT REPRESENTATIVE [facility] 08/18/2024 11:4 1 AM PROCUREMENT REPRESENTATIVE Kathy Ibrahim LABORATORY Final Result Performing Organization Address [facility] de Phone Number [facility] [address] [place] [address], [place] [phone] * MG SCREENING W BRUCE LORENE DIGI (11/06/2023 8:54 AM CDT) Anatomical Region Laterality Modality Breast Bilateral Mammography 11/06/2023 4:45 PM CDT Narrative 11/06/2023 4:45 PM CDT Examination: Digital screening mammogram with CAD. Clinical history: Asymptomatic patient presents for routine screening. Comparison: 11/02/2022, 11/01/2021, 10/27/2020, 10/27/2019. Technique: Bilateral digital mammograms. The exam was interpreted with the use of a computer-aided detection (CAD) system. Additional 3-D tomosynthesis images were acquired. Tissue density: The breast tissue contains scattered fibroglandular densities. Findings: The breast tissue contains scattered fibroglandular densities. No suspicious mass, microcalcification or area of architectural distortion can be identified. From a mammographic standpoint, routine followup in one year would seem adequate. IMPRESSION: No suspicious change since the previous exams. Recommendation: 1: Routine Screening Bilateral in 1 Year Assessment: ACR BI-RADS 1 - NEGATIVE Ordered By: MADALYN MACKENZIE Interpreted By: Mika Page MD, 11/06/2023 4:45 PM us Madalyn Mcakenzie PA-C MAMMO Final Resul t * BONE DENSITY/DEXA (11/28/2022 9:34 AM CDT) Anatomical Region Laterality Modality Bone Bone Density 11/28/2022 2:06 PM CDT Impressions 11/28/2022 2:08 PM CDT IMPRESSION: WHO Classification: Normal RECOMMENDATIONS: All patients should ensure an adequate intake of dietary calcium and vitamin D. The NOF recommend adults under the age of 50 need 1000 mg of calcium and 400-800 IU of vitamin D daily. Effective therapy for the prevention and treatment of osteoporosis include bisphosphonates. Follow-up: People with diagnosed cases of osteoporosis or at high risk for fracture should have regular bone mineral density test. For patients eligible for Medicare, routine testing is allowed once every 2 years. Testing frequency can be increased to one year for patients who have rapidly progressing disease, those who are receiving or discontinuing medical therapy to restore bone mass, or have additional risk factors. Referred By: ZULEYMA MOTLEY Interpreted By: Robert Patel MD, 11/28/2022 2:06 PM Narrative 11/28/2022 2:08 PM CDT EXAMINATION: BONE DENSITY/DEXA INDICATIONS: Postmenopausal COMPARISON: 11/23/2020 TECHNIQUE: DEXA bone minimal density evaluation was performed in the AP projection over the lumbar spine and both hips utilizing standard imaging techniques. ASSESSMENT: The BMD measured at the AP spine L1-L4 is 1.298 g/cm? with a T-score of 2.3. Previously 1.267 g/cm? and 2.0 respectively. The BMD measured at the left femoral neck is 1.028 g/cm? with a T-score of 1.6. Previously 1.023 g/cm? and 1.6 respectively. The BMD measured at the left hip is 1.076 g/cm? with a T-score of 1.1. Previously 1.038 g/cm? and 0.8 respectively. The BMD measured at the right femoral neck is 1.176 g/cm? with a T-score of 2.9. Previously 1.088 g/cm? and 2.1 respectively. The BMD measured at the right hip is 1.056 g/cm? with a T-score of 0.9. Previously 1.098 g/cm? and 1.3 respectively. FRAX 10-year fracture risk: Major Osteoporotic Fracture: 8.6% Hip Fracture: 0.2% Procedure Note Robert Patel MD - 11/28/2022 EXAMINATION: BONE DENSITY/DEXA INDICATIONS: Postmenopausal COMPARISON: 11/23/2020 TECHNIQUE: DEXA bone minimal density evaluation was performed in the APprojection over the lumbar spine and both hips utilizing standard imagingtechniques. ASSESSMENT: The BMD measured at the AP spine L1-L4 is 1.298 g/cm? with a T-score of2.3. Previously 1.267 g/cm? and 2.0 respectively. The BMD measured at the left femoral neck is 1.028 g/cm? with a T-score of1.6. Previously 1.023 g/cm? and 1.6 respectively. The BMD measured at the left hip is 1.076 g/cm? with a T-score of 1.1.Previously 1.038 g/cm? and 0.8 respectively. The BMD measured at the right femoral neck is 1.176 g/cm? with a T-scoreof 2.9. Previously 1.088 g/cm? and 2.1 respectively. The BMD measured at the right hip is 1.056 g/cm? with a T-score of 0.9.Previously 1.098 g/cm? and 1.3 respectively. FRAX 10-year fracture risk: Major Osteoporotic Fracture: 8.6% Hip Fracture: 0.2% IMPRESSION: WHO Classification: Normal RECOMMENDATIONS: All patients should ensure an adequate intake of dietary calcium andvitamin D. The NOF recommend adults under the age of 50 need 1000 mg ofcalcium and 400-800 IU of vitamin D daily. Effective therapy for theprevention and treatment of osteoporosis include bisphosphonates. Follow-up: People with diagnosed cases of osteoporosis or at high risk for fractureshould have regular bone mineral density test. For patients eligible forMedicare, routine testing is allowed once every 2 years. Testing frequencycan be increased to one year for patients who have rapidly progressingdisease, those who are receiving or discontinuing medical therapy torestore bone mass, or have additional risk factors. Referred By: ZULEYMA MOTLEY Interpreted By: Robert Patel MD, 11/28/2022 2:06 PM us Zuleyma Motley MD DEXA Final Result * Colonoscopy (01/03/2022 6:52 AM CDT) us Trace Painting MD GI PROCEDURE ORDERABLES Final Result from Last 3 Months or Most Recently Relevant to Health Maintenance Insurance [employer] Advance Directives * Full Code (Latest Code Status on File) Date Activated Date Inactivated Comments 08/18/2024 4:48 PM 08/20/2024 1:31 PM Care Teams Chief Environmental Commitment Officer Relationship Specialty Start Date End Date Zuleyma Motley MD [address] [place] [id number] PCP - General FAMILY PRACTICE 03/07/19
--- OUTSIDE RECORDS SUMMARY | 2024-10-12 10:15 | XMS_ITS | Clinical Summary ---
Author Organization [facility] Address [facility] [place] [address] Care Team Providers Care Laminating Machine Feeder Name Role Phone Zuleyma Motley MD Primary Care Provider Madalyn Griffin Unavailable [phone] Allergies Active Allergy Reactions Criticality Noted Date Comments Adhesive Other (See comments) Low 12/27/2021 Ciprofloxacin Other (See comments) Low 12/27/2021 Venlafaxine Other (See comments) Low 03/07/2019 Medications multivitamin with minerals (Multiple Vitamin-Minerals ) tablet Take 1 tablet by mouth daily Active erenumab-aooe (AIMOVIG) 70 mg/mL auto-injector subcutaneous injection 05/21/20 22 Active glucosamine-lidia droitin 500-400 mg capsule Take 1 capsule by mouth daily Active magnesium oxide (MAG-OX) 250 mg (150.8 mg elemental) tablet Take 1 tablet (250 mg total) by mouth 2 (two) times a day Active rosuvastatin (CRESTOR) 5 mg tablet Take by mouth nightly Active timolol (TIMOPTIC) 0.5 % ophthalmic solution 1 drop 2 (two) times a day 02/18/20 24 Active triamcinolone (KENALOG) 0.1 % cream APPLY CREAM TWO TIMES DAILY NEEDED Active Ubrelvy 100 mg tablet TAKE 1 TABLET BY MOUTH NEEDED FOR MIGRAINE MAY TAKE ADDITIONAL DOSE 2 HOURS AFTER IF NEEDED Active cyclobenzaprine (FLEXERIL) 5 mg tablet Take 1 tablet (5 mg total) by mouth 3 (three) times a day as needed for muscle spasms Active cholestyramine (QUESTRAN) 4 gram powder Take by mouth 3 (three) times a day with meals Active L. gasseri-B. bifidum-B longum 1.5 billion cell capsule Take by mouth Active vitamin E 1,000 unit capsule Take 1 capsule (1,000 Units total) by mouth daily Active loratadine (CLARITIN) 10 mg tablet Take 1 tablet (10 mg total) by mouth daily Active vonoprazan 10 mg tablet Take by mouth Active dexlansoprazole (DEXILANT) 60 mg capsule Take 1 capsule (60 mg total) by mouth daily 30 capsule 5 06/04/20 24 Active mirtazapine (REMERON) 7.5 mg tablet TAKE 1 TABLET BY MOUTH EVERY DAY NIGHTLY 90 tablet 3 09/16/19 25 Active mirtazapine (REMERON) 7.5 mg tablet Take 1 tablet (7.5 mg total) by mouth nightly 30 tablet 3 06/04/20 24 025 Discontinued Active Problems Problem Noted Date Diagnosed Date Elevated liver enzymes 02/22/2024 Assessment & Plan (02/22/2024 12:33 PM CDT): Patient with history of transaminitis dating back to 2017. At taht time, ALT was 34 and AST 38. ALT has been up to 74. Her most recent labs from this month show normal liver enzymes. I will obtain complete serology workup to rule out autoimmune, viral, and other causes of chronic liver disease. I will obtain a FIbroScan to evaluate for any hepatic steatosis and/or fibrosis. Given normal US and no other risk factors, I do not suspect she has steatosis. However, her grandfather of non-alcoholic cirrhosis. She is taking rosuvastatin but there is no need to stop therapy unless levels are 5-10x ULN. Mild ALT elevations can occur but are usually self limited and do not require dose adjustment. Aimovig is unlikely to be inherently hepatotoxic If workup is negative, will plan to monitor labs. Should her liver enzymes become elevated again, will consider liver biopsy. She will return to clinic in 1 year or sooner if needed. Gastroesophageal reflux disease 02/22/2024 Assessment & Plan (02/22/2024 12:35 PM CDT): History of H.Pylori. Placed referral to GI for further management and workup. We discussed diet and which foods may be better tolerated. Her symptoms appear to be worse when she is constipated. Recommended she try daily miralax and metamucil/increased fiber intake. Encounters Date Type Department Care Team Description 07/17/2024 9:20 AM ROLLER COASTER DESIGNER - 07/17/2024 11:59 PM ROLLER COASTER DESIGNER Hospital Encounter [facility] [address] [place] [address] Liver fibrosis Discharge Disposition: Discharge to home or self care 07/17/2024 Telephone [facility] Gastroenterology [address] [facility] 12[address] [place] [address] [place] [id number] Anne Gibbons RN from Last 3 Months Family History Medical History Relation Name Comments Arthritis Father Diabetes Father Heart attack Father Heart disease Father Kidney disease Father Cholelithiasis Mother Diabetes Mother Diverticulosis Mother Skin cancer Mother Relation Name Status Comments Father Mother Social History Tobacco Use Types Packs/Day Years Used Date Smoking Tobacco: Never Tobacco Cessation:Counseling Given: Not Answered Comments Unknown Sex and Gender Information Value Date Recorded Sex Assigned at Not on file Legal Sex Female 6:07 AM ROLLER COASTER DESIGNER Gender Identity Female 05/22/2024 10:07 PM CDT Sexual Orientation Choose not to disclose 2023 10:07 PM CDT Obstetrics History Last Filed Vital Signs Vital Sign Reading Time Taken Comments Blood Pressure 148/91 06/04/2024 9:56 AM CDT Pulse 67 06/04/2024 9:56 AM CDT Temperature 36.5 C (97.7 F) 06/04/2024 9:56 AM CDT Respiratory Rate 16 02/21/2024 1:30 PM CDT Oxygen Saturation 97% 02/21/2024 1:30 PM CDT Inhaled Oxygen Concentration - - Weight 54.9 kg (121 lb) 06/04/2024 9:56 AM CDT Height 162.6 cm (5' 4 ) 06/04/2024 9:56 AM CDT Body Mass Index 20.77 06/04/2024 9:56 AM CDT Plan of Treatment Health Maintenance Due Date Last Done Comments Colon Cancer Screening-Colonoscopy 1950 Depression Screening 1950 Fall Risk Assessment 1950 Pneumococcal vaccine 65+ (1 of 1 - PCV) 2017 Well Visit 65+ 2017 Zoster Vaccine (2 of 2) 11/05/2019 09/10/2019 Covid-19 Vaccine (6 - 2023-2 5 season) 2024 06/05/2023, 05/05/2022, 06/03/2021, Additional history exists Influenza Vaccine (#1) 2024 , 05/05/2022, 05/10/2020, Additional history exists Breast Cancer Screening-Mammogram 11/05/2024 11/06/2023, 11/06/2023, 11/02/2022, Additional history exists Osteoporosis Screening-Bone Density Scan 11/28/2024 11/28/2022 DTaP/Tdap/Td Vaccine (2 - Td or Tdap) 06/16/2033 06/16/2023 Hepatitis B Screening Completed 02/21/2024 Hepatitis C Screening Completed 02/21/2024 Procedures Procedure Name Priority Date/Time Associated Diagnosis Comments MRI ABDOMEN W WO CONTRAST WITH MR ELASTOGRAPHY (C) Schedule Routine, Read Routine (OP Routine) 07/17/2024 11:14 AM ROLLER COASTER DESIGNER Liver fibrosis HEPATITIS C ANTIBODY Routine 02/21/2024 2:38 PM CDT Elevated liver enzymes from Last 3 Months or Most Recently Relevant to Health Maintenance Results * MRI Abdomen W WO Contrast With MR Elastography (C) (07/17/2024 11:14 AM ROLLER COASTER DESIGNER) Anatomical Region Laterality Modality Body N/A Magnetic Resonan ce 07/17/2024 11:5 8 AM ROLLER COASTER DESIGNER Impressions 07/17/2024 1:05 PM ROLLER COASTER DESIGNER No evidence of hepatic steatosis with normal liver elastography. Dictated by: Manuel Dey MD The radiology attending physician has personally reviewed this study, and had reviewed and/or edited this written report and agrees with it. Electronically signed by: Alonso Jones M.D., Ph.D Narrative 07/17/2024 1:05 PM ROLLER COASTER DESIGNER EXAMINATION: 1. MAGNETIC RESONANCE IMAGING OF THE ABDOMEN WITH AND WITHOUT CONTRAST 2. MR LIVER ELASTOGRAPHY HISTORY: Concern for fibrosis. TECHNIQUE: Magnetic resonance imaging of the abdomen was performed prior to and following the uneventful administration of intravenous Gadolinium contrast. MR elastography was performed using the [employer] system. Protocol: Routine liver with elastography Contrast: gadoterate 10 mL COMPARISON: None FINDINGS: Liver: No steatosis. Scattered too small to characterize liver lesions may represent cysts. - Iron quantification: 0.67 mg iron / g liver - Fat fraction: 7% - Elastography: MR elastography was performed which demonstrated a mean liver stiffness of 1.4 -1.8 kilopascals (kPa). This is consistent with normal liver stiffness (<2.9 kPa) MR elastography estimates of hepatic stiffness (at 60 Hz) correlate with hepatic fibrosis stages as: < 2.5 kPa: Normal 2.5 - 2.9 kPa: Normal or inflammation 2.9 - 3.5 kPa: Stage 1 to 2 fibrosis 3.5 - 4 kPa: Stage 2-3 fibrosis 4 - 5 kPa: Stage 3-4 fibrosis > 5 kPa: Stage 4 fibrosis or cirrhosis These are broad categories and results should be interpreted with clinical and laboratory findings for other possible causes of increased liver stiffness. (Morgan S, Mikhail R. Magnetic resonance elastography of the liver. Magn Reson Imaging Clin N Am 2014; 22: 433-46). - Bile ducts: No intra or extrahepatic biliary ductal dilation. - Focal liver lesions: None - Vasculature: Patent. Gallbladder: Normal. Pancreas: Normal Spleen: Normal Adrenals: Normal Kidneys: Normal Other Findings: No aggressive osseous lesion. Imaged portion of the bowel is within normal limits. Lung bases within normal limits. Procedure Note Alonso Jones MD PhD - 07/17/2024 EXAMINATION: 1. MAGNETIC RESONANCE IMAGING OF THE ABDOMEN WITH AND WITHOUT CONTRAST 2. MR LIVER ELASTOGRAPHY HISTORY: Concern for fibrosis. TECHNIQUE: Magnetic resonance imaging of the abdomen was performed prior to and following the uneventful administration of intravenous Gadolinium contrast. MR elastography was performed using the [employer]oundant system. Protocol: Routine liver with elastography Contrast: gadoterate 10 mL COMPARISON: None FINDINGS: Liver: No steatosis. Scattered too small to characterize liver lesions may represent cysts. - Iron quantification: 0.67 mg iron / g liver - Fat fraction: 7% - Elastography: MR elastography was performed which demonstrated a mean liver stiffness of 1.4 -1.8 kilopascals (kPa). This is consistent with normal liver stiffness (<2.9 kPa) MR elastography estimates of hepatic stiffness (at 60 Hz) correlate with hepatic fibrosis stages as: < 2.5 kPa: Normal 2.5 - 2.9 kPa: Normal or inflammation 2.9 - 3.5 kPa: Stage 1 to 2 fibrosis 3.5 - 4 kPa: Stage 2-3 fibrosis 4 - 5 kPa: Stage 3-4 fibrosis > 5 kPa: Stage 4 fibrosis or cirrhosis These are broad categories and results should be interpreted with clinical and laboratory findings for other possible causes of increased liver stiffness. (Morgan S, Mikhail Navarrete. Magnetic resonance elastography of the liver. Magn Reson Imaging Clin N Am 2014; 22: 433-46). - Bile ducts: No intra or extrahepatic biliary ductal dilation. - Focal liver lesions: None - Vasculature: Patent. Gallbladder: Normal. Pancreas: Normal Spleen: Normal Adrenals: Normal Kidneys: Normal Other Findings: No aggressive osseous lesion. Imaged portion of the bowel is within normal limits. Lung bases within normal limits. IMPRESSION: No evidence of hepatic steatosis with normal liver elastography. Dictated by: Manuel Dey MD The radiology attending physician has personally reviewed this study, and had reviewed and/or edited this written report and agrees with it. Electronically signed by: Alonso Jones M.D., Ph.D Mayra Carpenter NP IMG MRI PROCEDURES Final Result * Hepatitis C antibody Blood (02/21/2024 2:38 PM CDT) Hep C Ab Nonreactive Nonreactive Comment:Antibodies to HCV no t detected. Does NOT exclude the possibility of recent exposure to HCV. Current interpretive data was last revised on 22 Blood 02/21/2024 2:38 PM CDT 02/21/2024 2:52 PM CDT Mayra Carpenter NP LAB MICROBIOLOGY - GENER AL ORDERABLES Final Result [facility] Department [place] [address] from Last 3 Months or Most Recently Relevant to Health Maintenance Insurance T MEDICARE T MEDICARE Care Teams Laminating Machine Feeder Relationship Specialty Start Date End Date [place] [id number] PCP - General Family Medicine 12/21/23 [place] [address] [place] [id number] Physician Financial Services Specialist Family Medicine 12/21/23
--- OUTSIDE RECORDS SUMMARY | 2024-10-12 10:15 | XMS_ITS | Referral Summary ---
Author Organization [facility] Address [address] [place] [address] Care Team Providers Care Belt Picker Name Role Phone Zuleyma Motley MD Primary Care Provider Madalyn Griffin Unavailable [phone] Encounters Date Type Department Care Team Description 07/17/2024 Telephone [facility] Gastroenterology [address] [facility] 12[address] [place] [address] [place] [address] Anne Gibbons, RIAZ 07/17/2024 9:20 AM MANAGER DATA WAREHOUSE - 07/17/2024 11:59 PM MANAGER DATA WAREHOUSE Hospital Encounter [facility] [address] [place] [address] Liver fibrosis Discharge Disposition: Discharge to home or self care from Last 3 Months Allergies Active Allergy Reactions Criticality Noted Date Comments Adhesive Other (See comments) Low 12/27/2021 Ciprofloxacin Other (See comments) Low 12/27/2021 Venlafaxine Other (See comments) Low 03/07/2019 Medications multivitamin with minerals (Multiple Vitamin-Minerals ) tablet Take 1 tablet by mouth daily Active erenumab-aooe (AIMOVIG) 70 mg/mL auto-injector subcutaneous injection 05/21/20 Active glucosamine-lidia droitin 500-400 mg capsule Take [...] try daily miralax and metamucil/increased fiber intake. Social History Tobacco Use Types Packs/Day Years Used Date Smoking Tobacco: Never Tobacco Cessation:Counseling Given: Not Answered Comments Unknown Sex and Gender Information Value Date Recorded Sex Assigned at Not on file Legal Sex Female 6:07 AM MANAGER DATA WAREHOUSE Gender Identity Female 05/22/2024 10:07 PM CDT Sexual Orientation Choose not to disclose 2023 10:07 PM CDT Last Filed Vital Signs Vital Sign Reading [...] 06/04/2024 9:56 AM CDT Plan of Treatment Not on file Procedures Procedure Name Priority Date/Time Associated Diagnosis Comments MRI ABDOMEN W WO CONTRAST WITH MR ELASTOGRAPHY (C) Schedule Routine, Read Routine (OP Routine) 07/17/2024 11:14 AM MANAGER DATA WAREHOUSE Liver fibrosis HEPATITIS C ANTIBODY Routine 02/21/2024 2:38 PM CDT Elevated liver enzymes from Last 3 Months or Most Recently Relevant to Health Maintenance Results * MRI Abdomen W WO Contrast With MR Elastography (C) (07/17/2024 11:14 AM MANAGER DATA WAREHOUSE) Anatomical Region Laterality Modality Body N/A Magnetic Resonan ce 07/17/2024 11:5 8 AM MANAGER DATA WAREHOUSE Impressions 07/17/2024 1:05 PM MANAGER DATA WAREHOUSE No evidence of hepatic steatosis with normal liver elastography. Dictated by: Manuel Dey MD The radiology attending physician has personally reviewed this study, and had reviewed and/or edited this written report and agrees with it. Electronically signed by: Alonso Jones M.D., Ph.D Narrative 07/17/2024 1:05 PM MANAGER DATA WAREHOUSE EXAMINATION: 1. MAGNETIC RESONANCE IMAGING OF THE ABDOMEN WITH AND WITHOUT CONTRAST 2. MR LIVER ELASTOGRAPHY HISTORY: Concern for fibrosis. TECHNIQUE: Magnetic resonance imaging of the abdomen was performed prior to and following the uneventful administration of intravenous Gadolinium contrast. MR elastography was performed using the [employer] system. Protocol: Routine liver with elastography Contrast: [...] contrast. MR elastography was performed using the [employer] system. Protocol: Routine liver with elastography Contrast: [...] other possible causes of increased liver stiffness. (oMrgan S, Mikhail R. Magnetic resonance elastography of [...] MICROBIOLOGY - GENER AL ORDERABLES Final Result [facility] [place] [address] from Last 3 Months or Most Recently Relevant to Health Maintenance Insurance [facility] MEDICARE T MEDICARE Care Teams Belt Picker Relationship Specialty Start Date End Date Zuleyma Motley MD [address] [place] [address] PCP - General Family Medicine 12/21/23 Madalyn Griffin PA [address] [place] [id number] Physician Pnp Family Medicine 12/21/23
--- OUTSIDE RECORDS SUMMARY | 2024-10-12 10:15 | XMS_ITS | Data Portability ---
Author Organization [facility], [address] [facility] ([place]) Address [address] 4th [place] [address] Care Team Providers Care Supervisor Research Kennel Name Role Phone AL LANZA Primary Care Provider EDVIN ANGEL Vascular Surgeon AL LANZA Referring Provider [phone] Assessment Encounter Date Assessment Date Assessment LastModified by Organization Details LastModified Time 02/12/2024 02/12/2024 Findings on examination, history, and carotid artery duplex were discussed with the patient. She is reassured that her carotids have not become stenotic over time and probably could be rechecked in 5 years with a carotid duplex. If she has neurological symptoms, they should be rechecked at that time. In terms of her legs, we discussed the importance of management of edema to prevent worsening varicosities and spider's as well as discomfort. The importance of controlling edema with intermittent leg elevation above heart level several times a day, consistent use of graduated support stockings, and exercise to help promote venous return were discussed with the patient. An instruction sheet on chronic venous insufficiency was supplied as well as instructions on what type of support to obtain. She is asked to return on an as-needed basis if any new problems arise or symptoms or not relieved. Patient expressed understanding and intention to comply. [email or web address] Not available 02/23/2024 19:53:12 Plan of Treatment Reminders Order Date Submit Date Provider Last Modified By Organization Details Last Modified Time Details Appointments Establish ed Patient 15.EST 2024 10:15A M Dr. Esther Desai Not available Not available Not available Lab None recorded. Referral None recorded. Procedures None recorded. Surgeries None recorded. Imaging US, carotid artery 2023 024 [facility], [address], [place], [address], 02/12/2024 19:14:25 Medication Orders None recorded. Patient TargetsNo targets recorded. Patient InstructionsNo instructions recorded. Reason for Referral None Reported. Results Created Date Observation Date Name Description Value Unit Range Abnormal Flag Note LastModifiedBy Organization Detail LastModifiedTime 02/12/20 24 02/12/2024 US, carot id arter y [facility] [address] [place] [id number] Teleph one Name: Margaret Contreras [id number] Exam Date: 2023 Age: 73 Physic vidal: Shanda mcginnis MD, Edvin : 1949 Examin ation: US CAROTI D BILATE RAL INDICA TION: 73-yea r-old female is seen for caroti d artery imagin g in follow -up of a histor y of stenos is on previo [facility] GS: Right: All vessel s are satisf actori ly imaged . There is mild plaque noted. Veloci ty of the common caroti d artery is 103/26 cm/sec , and the bulb is 80/24 cm/sec . Peak veloci ty of the internet network specialist al caroti d artery is 88/31 cm/sec . High Density Press Laborer al caroti d artery veloci ty is 91 cm/sec . Verteb ral artery is antegr alpesh with normal veloci ty. Left: All vessel s are satisf actori ly imaged . There is mild plaque noted. Veloci ty of the common caroti d artery is 90/29 cm/sec , and the bulb is 93/26 cm/sec . Peak veloci ty of the internet network specialist al caroti d artery is 97/33 cm/sec . High Density Press Laborer al caroti d artery veloci ty is 88 cm/sec . Verteb ral artery is antegr alpesh with normal veloci ty. IMPRES EFRAIN: Right caroti d duplex shows mild athero sclero sis of the caroti d artery . There is stenos is of the internet network specialist al caroti d artery in the 1-15 % range. High Density Press Laborer al caroti d artery is patent with normal veloci ty. Verteb ral artery is antegr alpesh with normal veloci ty. Left caroti d duplex shows mild athero sclero sis of the caroti d artery . There is stenos is of the internet network specialist al caroti d artery in the 1-15 % range. High Density Press Laborer al caroti d artery is patent with normal veloci ty. Verteb ral artery is antegr alpesh with normal veloci ty. Electr onical ly signed in [place]acho cribe by: EDVIN MCGINNIS MD on:01/25 6:11 PM cc: INTERFACE [facility] [address] [place] [address], [id number], 02/12/2024 19:14:26 Result Notes None recorded. Problems Name Problem SNOMED Code Status Onset Date Resolution Date Notes Provider Name and Address Organization Details Recorded Time Hypercholes terolemia 69082028 Active 2023 Crista beal, [facility] 4 10:39:53 Carotid atheroscler osis 927867252 Active 2023 Edvin Angel MD [address] [place] [address], [phone], [facility] 4 11:12:06 Venous insufficien cy of leg 587763030 Active 2023 Edvin Angel MD [address] [place] [address], [phone], [facility] 4 11:22:35 Bilateral spider veins of lower limbs [id number] 9105 Active 2023 Crista beal, [facility] 4 14:30:42 Problem Notes None recorded. Procedures Surgical History Date Name Laterality Status Provider Name and Address Organization Details Recorded Time Colonoscopy with biopsy completed Not Available Health Note 02/10/2024 11:13:18 Imaging Results Imaging Date Name Status LastModified by Lamont alvarado Details LastModified Time 02/12/2024 US, carotid artery completed [facility] [address] [place] [address], [id number], 02/12/2024 19:14:26 Procedure Notes None recorded. Medical Equipment None Reported. Allergies Allergen ID Allergen Name Allergen Category Reaction Reaction Severity Criticality Documentation Date Start Date Code Code System Note Provider Name and Address Organization Details Recorded Time 0294651 wool environme nt rash Not available Not available 02/10/2024 84875 UNK Not Available Not Available Not Available 762737 Effexor medicatio n dyspnea Not available Not available 09/24/20232009 84938 2 RxNorm React ion: Short ness of breat h; Not Available Not Available Not Available 384374 Biaxin medicatio n Not available Not available Not available 09/24/20232009 67456 9 RxNorm Comme nt: Other Anno che ns: GRUND Y, BRAND ON 2009 2:38P M WOOL; ; Not Available Not Available Not Available 661435 adhesive tape environme nt,medica tion Not available Not available Not available 09/24/20232009 65245 UNK Comme nt: Adhes molly Tape ; Not Available Not Available Not Available 018482 ciproflox acin hydrochlo ride medicatio n Not available Not available Not available 09/24/20232021 48539 RxNorm Not Available Not Available Not Available Medications Name Sig Start Date Stop Date Status Note LastModified by Organization Details LastModified Time tetracyclin e 500 mg capsule TAKE 1 CAPSULE BY MOUTH 4 TIMES A DAY. TAKE WITH METRONIDA ZOLE & BISMUTH SUBSALICY LATE FOR H. PYLORI 02/11 completed Not Available Not Available Not Available prednisone 20 mg tablet TAKE 1 TABLET BY MOUTH EVERY DAY 02/11 completed Not Available Not Available Not Available metronidazo le 500 mg tablet TAKE 1 TABLET BY MOUTH FOUR TIMES A DAY FOR 14 DAYS. TO BE TAKEN WITH TETRACYCL INE AND BISMUTH 02/11 completed Not Available Not Available Not Available triamcinolo ne acetonide 0.1 % topical cream APPLY CREAM TWO TIMES DAILY NEEDED active Not Available Not Available No t Available amoxicillin 500 mg tablet TAKE 2 TABLETS BY MOUTH TWICE A DAY FOR 14 DAYS FOR POSITIVE HELICOBAC TER PYLORI 02/11 completed Not Available Not Available Not Available meclizine 25 mg tablet TAKE 1 TO 2 TABLETS BY MOUTH 3 TIMES A DAY NEEDED FOR DIZZINESS 02/11 completed Not Available Not Available Not Available vitamin E 400 unit tablet Take 1 tablet twice a day by oral route. active Not Available Not Available No t Available metoprolol succinate ER 25 mg tablet,exte nded release 24 hr TAKE HALF A TABLET BY MOUTH DAILY active Not Available Not Available No t Available levofloxaci n 500 mg tablet TAKE 1 TABLET BY MOUTH DAILY WITH AMOXICILL IN 02/11 completed Not Available Not Available Not Available timolol maleate 0.5 % eye drops INSTILL 1 DROP INTO BOTH EYES TWICE DAILY active Not Available Not Available No t Available lisinopril 2.5 mg tablet TAKE 1 TABLET BY MOUTH DAILY FOR 30 DAYS. active Not Available Not Available No t Available amoxicillin 875 mg-potassiu m clavulanate 125 mg tablet TAKE 1 TABLET BY MOUTH TWICE A DAY 02/11 completed Not Available Not Available Not Available Stomach Relief 262 mg chewable tablet CHEW AND SWALLOW 2 TABLETS 4 TIMES DAILY. TO BE TAKEN WITH H. PYLORI TREATMENT 02/11 completed Not Available Not Available Not Available Vitamin B6 200 mg tablet,exte nded release Take 1 tablet twice a day by oral route. active Not Available Not Available No t Available cyclobenzap rine 5 mg tablet TAKE 1-2 TABLET BY MOUTH THREE TIMES DAILY, NEEDED active Not Available Not Available No t Available cyclosporin e 0.05 % eye drops in a dropperette INSTILL 1 DROP INTO BOTH EYES TWICE A DAY DIRECTED active Not Available Not Available No t Available cholestyram ine (with sugar) 4 gram oral powder MIX AND DRINK 4 GRAM BY MOUTH THREE TIMES DAILY, NEEDED active Not Available Not Available No t Available cholestyram ine (with sugar) 4 gram powder for susp in a packet 1 (ONE) PACKET BY MOUTH THREE TIMES DAILY, NEEDED active Not Available Not Available No t Available rosuvastati n 5 mg tablet TAKE 1/2 OF A TABLET BY MOUTH EVERY OTHER DAY active Not Available Not Available No t Available mirtazapine 7.5 mg tablet TAKE 1 TABLET BY MOUTH EVERY DAY NIGHTLY active Not Available Not Available No t Available Systane (PF) 0.4 %-0.3 % eye drops in a dropperette prn active Not Available Not Available Not Available multivitami n 1 tablet daily active Not Available Not Available No t Available dexlansopra zole 60 mg capsule,bip hase delayed release TAKE 1 CAPSULE BY MOUTH EVERY DAY active Not Available Not Available No t Available dexlansopra zole 30 mg capsule,bip hase delayed release TAKE 1 CAPSULE BY MOUTH EVERY DAY active Not Available Not Available No t Available Probiotic active Not Available Not Bebe ilable Not Available Osteo Bi-Flex 2 tablets per day active Not Available Not Available No t Available magnesium 400 mg (as magnesium aspartate,c itrate,oxid e) capsule Take 2 capsules every day by oral route with meal(s). active Not Available Not Available No t Available Restasis MultiDose 0.05 % eye drops INSTILL 1 DROP INTO BOTH EYES TWICE A DAY active Not Available Not Available No t Available Aimovig Autoinjecto r 140 mg/mL subcutaneou s auto-inject or INJECT 140MG INTO THE SKIN ONCE A MONTH active Not Available Not Available No t Available Ubrelvy 100 mg tablet TAKE 1 TABLET BY MOUTH NEEDED FOR MIGRAINE MAY TAKE ADDITIONA L DOSE 2 HOURS AFTER IF NEEDED active Not Available Not Available No t Available Qulipta 60 mg tablet TAKE 1 TABLET BY MOUTH EVERY DAY 02/11 completed Not Available Not Available Not Available Paxlovid 300 mg (150 mg x 2)-100 mg tablets in a dose pack TAKE 3 TABLETS BY MOUTH TWICE A DAY FOR 5 DAYS 02/11 completed Not Available Not Available Not Available Vitals Date Recorded Body weight Heart rate Respiratory rate Oxygen saturation Oxygen saturation in Arterial blood by Pulse oximetry Systolic blood pressure Diastolic blood pressure Provider Name and Address Organization Details Last Updated DateTime 4 30130.5 7 g 62 /min 18 /min 99 % 99 % 122 mm[Hg] 80 mm[Hg] Crista Dan [facility] 4 10:32:07 Social History Question Answer Notes LastModified by Organizat ion Details LastModified Time Do You Have An Advance Directive? No [email or web address] Information not available 02/26/2024 What Is Your Level Of Alcohol Consumption? None [email or web address] Information not available 02/26/2024 What Is Your Level Of Caffeine Consumption? None [email or web address] Information not available 02/26/2024 Are You Currently Employed? 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 5-7 Times Per Week [email or web address] Information not available 02/26/2024 Do You Have A Medical Power Of Punch Press Feeder? No [email or web address] Information not available 02/26/2024 What Was The Date Of Your Most Recent Tobacco Screening? 03/04/2024 [email or web address] Information not available 02/26/2024 What Is Your Relationship Status? [email or web address] Information not available 02/26/2024 Do You Use Any Illicit Or Recreational Drugs? No [email or web address] Information not available 02/26/2024 Sex: Unknown Functional Status Question Answer Note LastModified by Organization D etails LastModified Time What is your exercise level? Moderate [email or web address] Information not available 02/26/2024 Mental Status None recorded. Family History Relationship Description Onset Age of this Age Resolved Age Notes LastModified by Organization Details LastModified Time Mother Arthritis [email or web address] Not available 02/10/2024 11:13:17 Mother Diabetes mellitus [email or web address] Not available 2023 11:13:17 Mother Heart disease [email or web address] Not available 2023 11:13:17 Father Arthritis [email or web address] Not available 02/10/2024 11:13:17 Father Diabetes mellitus [email or web address] Not available 2023 11:13:17 Father Heart disease [email or web address] Not available 2023 11:13:17 Father Kidney disease [email or web address] Not available 2023 11:13:17 Father Osteoporosis [email or web address] Not availa ble 02/26/2024 15:33:02 Paternal Grandmother Diabetes mellitus [email or web address] Not available 2023 11:13:17 Paternal Grandmother Heart disease [email or web address] Not available 2023 11:13:17 Maternal Grandmother Heart disease [email or web address] Not available 2023 15:33:02 Notes:Mother has arthritis M other has diabetes Mother has heart disease Mother has depression Medical History Condition Response Diabetes N Anxiety Disorder Y Bleeding Disorder N Attention-deficit Hyperactivity Disorder N High Blood Pressure N Arthritis Y Hyperlipidemia N Cancer N Stroke N Thyroid Problems N Asthma N Depression Y COPD N Anemia N Seizures N Heart Disease N Fibromyalgia Y Osteoporosis N Kidney Disease N Gynecological HistoryNo gynecological history recorded. Obstetrics History GPAL:G 0 P 0 0 0 0 Past Encounters Encounter ID Performer Location Encounter Start Date Encounter Closed Date Diagnosis/Indication Diagnosis SNOMED-CT Code Diagnosis ICD10 Code Diagnosis Note [id number] Edvin Angel MD [address] [facility] [address] [place] [address] 02/12/2024 10:09:17 02/12/2024 13:03:44 Hypercholesterolemia 98693809 E78.00 Venous ins ufficiency of leg 773307033 I87.2 Carotid atherosclerosis 789401408 I65.29 Health Concerns Section Related Observation LastModified by Organization Detai ls LastModified Time None Recorded Concern Status LastModified by Organization Details LastModified Time None Recorded Advance Directives Directive N: Payers Encounter Date Sequence Insurance Name Policy Number Policy Tran Covered Member ID Tran Member ID Guarantor Name 02/12/2024 1 [employer] (MEDICARE REPLACEMENT PPO) [id number] 1 Latosha García [id number] Latosha García Notes Date Note Type Note Provider Name and Address Organization Details Recorded Time 02/12/2024 text/html 73-year-old angela rao is seen in evaluation of the leg edema and varicose veins. She reports that her legs really bother her especially at night. She notes that she gets some swelling of the ankles off and on. No problems with walking pain are reported. At night upon laying down she describes sharp pains which then become nagging. Frequently during the night, leg cramps and foot cramps wake her up from sleep. Upon questioning, she is fairly active during the day and actually exercises intentionally and does daily workouts. However, she never elevates her legs. At most she elevates her feet in a recliner, but never above heart level. Patient cares for her 3-year-old grandchild 3 days a week which keeps her very busy also. Her only risk factor for vascular disease known is hyperlipidemia for which she is on Crestor. She is also on an 81 mg aspirin because she has been told that she has small vessel disease in her brain when she had a workup for migraine headaches. She has had a carotid duplex study that she said showed calcification and she thought some narrowing. That was about 5 years ago and the study has not been repeated that she can recall. Patient is a lifelong non-smoker and is not diabetic. She has never been told she has hypertension. Family history is positive for heart disease in both parents who in their mid to late 60s. Socially she is a female for the past 44 years. She is 3 para 2 with 1 miscarriage. 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 Edvin Angel MD [address] [place] [address], [phone], [place] [facility] 02/23/2024 19:54:21 OBGyn Episode No OBEpisode recorded.
--- NOTE | 2024-10-12 10:17 | ECG_ITS ---
Test Date: 2024-10-12 10:21:53 Measurements Intervals [place] Rate: 58 P: 71 KS: 164 QRS: 57 QRSD: 102 T: 71 QT: 395 QTc: 389 Interpretive Statements SINUS BRADYCARDIA POSSIBLE LEFT ATRIAL ENLARGEMENT INCOMPLETE RIGHT BUNDLE BRANCH BLOCK BORDERLINE ECG No previous ECG available for comparison Electronically Signed On 10-12-2024 15:39:54 INVESTMENT BANKING ASSOCIATE by Ramo Hernandez D.O.
--- NOTE | 2024-10-12 10:29 | ED_ITS ---
HPI - Chest Pain General Chief Complaint: Chest Pain Stated Complaint: chest pain Time Seen by Provider: 10/12/24 10:28 Source: patient Mode of arrival: ambulatory Limitations: no limitations History of Present Illness HPI narrative: 74-year-old female with a history of hypertension, migraine, dyslipidemia, takotsubo cardiomyopathy( EF of 40%) with nonocclusive coronary artery disease on 08/19/2024, GERD presents to the ED with a 1 day history of -- left chest pain-- pain is located over the left chest. It is rated a 6/10. Unrelated to activity. No radiation of the pain. -- bilateral jaw pain- the pain is made worse by chewing. It is located over the TMJ. She has a prior history of TMJ arthralgia. No shortness of breath or lightheadedness MD complaint: chest pain Pertinent past history: other ( history of takotsubo with an EF of 40%.) Onset (ago): day(s) Timing of current episode: constant Prior episodes: No Onset: during rest Pain location: left chest Pain radiation: jaw/teeth ( Bilateral jaw pain) Severity: moderate Pain scale (0-10): 6 Quality: aching Relieving factors: nothing Exacerbating factors: nothing Risk Factors Coronary artery disease risk factors: hyperlipidemia and hypertension Thoracic aortic dissection risk factors: none Related Data On Oral Contraceptives: No Home Medications ?Medication ?Instructions ?Recorded ?Confirmed ?Last Taken ?Type aspirin 81 mg chewable tablet 81 mg PO DAILY 12/10/20 08/07/23 Unknown History (Yuniel Chewable Low Dose Aspirin) cyclobenzaprine 10 mg tablet 10 mg PO .HS 12/10/20 08/07/23 Unknown History cyclosporine 0.05 % eye drops in a 1 drp EACH EYE Q12H 12/10/20 08/07/23 Unknown History dropperette (Restasis) [id number] 8 mg-folic 400 1 tablet PO DAILY 12/10/20 08/07/23 Unknown History mcg-K 50 mcg-lutein 300 mcg tablet (Centrum Silver Women) rosuvastatin 5 mg tablet 5 mg PO DAILY 12/10/20 08/07/23 Unknown History timolol 0.5 % eye drops (Betimol) 1 drp EACH EYE Q12H 12/10/20 08/07/23 Unknown History triamcinolone acetonide 0.1 % 1 applic topical BID 04/16/21 12/12/23 Unknown History topical cream dexlansoprazole 30 mg 30 mg PO DAILY 02/06/23 08/07/23 Unknown History capsule,biphase delayed release glucosamine 500 cap PO 08/07/23 08/07/23 Unknown History uk-czcwrokxu-fhojeenz comp 400 mg-D3 667 unit-C-Mn cap magnesium citrate,mag oxide 250 mg mg PO 08/07/23 08/07/23 Unknown History capsule meclizine 25 mg tablet 25 mg PO BID PRN 08/07/23 08/07/23 Unknown History vitamin B comp and C no.3 15 mg-10 1 cap PO DAILY 08/07/23 08/07/23 Unknown History mg-50 mg-5 mg-300 mg capsule (B Complex Plus Vitamin C) cholestyramine (with sugar) 4 gram ea PO 02/26/24 Unknown History oral powder lactobacillus combination no.4 3 3,000 mmu cells PO DAILY 02/26/24 Unknown History billion cell capsule (Probiotic) tocophersolan (vitamin E TPGS) 75 unit PO 02/26/24 Unknown History unit/mL oral drops Allergies Allergy/AdvReac Type Severity Reaction Status Date / Time venlafaxine (From Effexor) Allergy Unknown Verified 10/12/24 10:26 tetracycline AdvReac Vomiting Verified 10/12/24 10:26 Review of Systems 2 Review of Systems: All systems reviewed & are unremarkable except as noted in HPI and below Constitutional: Constitutional: Reports as per HPI and Reports no additional constitutional complaints Eyes: Eyes: Reports as per HPI and Reports no additional eye complaints ENT: Reports system reviewed and no additional complaints, except as documented and Reports as per HPI Cardiovascular: Cardiovascular: Reports as per HPI, Reports no additional cardiovascular complaints and Reports chest pain Respiratory: Respiratory: Reports as per HPI and Reports no additional respiratory complaints Gastrointestinal: Gastrointestinal: Reports as per HPI and Reports no additional gastrointestinal complaints Comments: Episodes of belchi Genitourinary: Genitourinary: Reports no additional female genitourinary complaints and Reports as per HPI Musculoskeletal: Musculoskeletal: Reports no additional musculoskeletal complaints and Reports as per HPI Comments: Bilateral TMJ pain Integumentary/Breasts: Skin/Breast: Reports system reviewed and no additional complaints, except as docu and Reports as per HPI Neurologic: Reports system reviewed and no additional complaints, except as documented and Reports as per HPI Psychiatric: Psychiatric: Reports no additional psychiatric complaints and Reports as per HPI Endocrine: Endocrine: Reports no additional endocrine complaints and Reports as per HPI Hematologic/Lymphatic: Hematologic/Lymphatic: Reports no additional hematologic/lymphatic complaints and Reports as per HPI Allergic/Immunologic: Allergic/Immunologic: Reports no additional allergic/immunologic complaints and Reports as per HPI [facility] Past Medical History Medical History Takotsubo cardiomyopathy Social History Social History Social History: never smoker Smoking packs per day: 0 Smoking cigarettes per day: 0.0 Smoking status: Never smoker Second hand tobacco smoke exposure: No Alcohol intake: never Substance use: never Substance use type: does not use Lack of Transportation: No Lack of Food: Never True Current Housing: I Have Housing Concerned About Future Housing: No Difficulty Paying Gas/Electric Bills: No Difficulty Paying for Meds: No Currently Unemployed: No Education: Master's Degree or Higher Difficulty w/ Childcare or Family Care: No Living arrangements: with family Gender identity (if verbalized by the patient): Female Exam 2 Narrative: vitals are stable. Heart rate of 62. Afebrile. Const: General: no acute distress Orientation/consciousness: patient oriented x3 Limitations: no limitations HENMT: Head: normal to inspection Ears: external ears normal F randy/Nose/Sinus: Normal external nose present Face and sinus: normal facial exam Mouth: Yes Normal oral and palatal mucosa present Throat: posterior oropharynx normal Eyes: Conjunctivae: conjunctivae normal Pupils: Equal, round and reactive pupils present EOM: EOMs intact bilaterally Direct Ophthalmoscopy: no photophobia Neck: Neck: normal visual inspection, no lymphadenopathy and no meningeal signs Chest: Chest palpation & inspection: normal inspection of the chest Resp: Effort & Inspection: normal respiratory effort Auscultation: clear to auscultation bilaterally Cardio: Rate: regular rate Rhythm: regular rhythm GI: Auscultation: normal bowel sounds Other: No tenderness/rigidity/rebound : General: Yes no CVA tenderness Back/Spine/Pelvis: Back: no CVA tenderness Skin: General skin exam: normal color Rashes: no rashes Wounds: no wounds Neuro: General: patient oriented x3, moves all extremities, no meningeal signs, no focal motor deficits and CN's II-XI intact bilaterally Cranial nerves: Yes Nystagmus not present Speech: normal speech Extrem: General: normal to inspection and no clubbing, cyanosis or edema Psych: Mental Status: mental status grossly normal Affect: normal affect Attitude: cooperative Course Course Emergency Course: bilateral jaw pain/TMJ chest pain-- EKG did not show any acute findings. Patient was noted to have a normal troponin. Neutropenia with a white cell count of 2.9 Vital Signs Vital signs: Vital Signs Pulse Rate 59 L 10/12/24 10:19 Respiratory Rate 15 10/12/24 10:19 Pulse Oximetry 100 10/12/24 10:19 Temperature 36.7 C 10/12/24 10:26 Pulse Rate 56 L 10/12/24 11:01 Respiratory Rate 19 10/12/24 11:01 Blood Pressure 109/63 10/12/24 11:01 Pulse Oximetry 97 10/12/24 11:01 Oxygen Delivery Room Air 10/12/24 10:29 MDM - Chest Pain MDM Narrative Medical decision making narrative: TMJ arthralgia chest pain neutropenia Differential Diagnosis Differential diagnosis: Likely stable angina and biliary colic Medical Records Data Attestation: I reviewed the patient's medical records. Lab Data Attestation: I reviewed the patient's lab results. 10/12/24 10:56 10/12/24 10:56 Labs: Lab Results 10/12/24 Range/Units 10:56 WBC 2.9 L (4.8-10.8) K/mm3 RBC 3.76 L (4.20-5.40) M/mm3 Hgb 11.7 (11.7-13.8) g/dL Hct 35.1 (35.0-42.0) % MCV 93.4 (78.0-102.0) fL MCH 31.1 H (27.0-31.0) pg MCHC 33.3 (32-36) g/dL RDW 12.7 (11.6-14.4) % Plt Count 210 (150-420) K/mm3 MPV 9.2 (9.2-11.8) fl Immature Gran % (Auto) 0.0 (0.0-0.0) % Neut % (Auto) 48.1 L (50.0-70.0) % Lymph % (Auto) 37.5 (18.0-42.0) % Sandoval % (Auto) 12.3 H (2.0-11.0) % Eos % (Auto) 1.4 (1.0-6.0) % Baso % (Auto) 0.7 (0.0-1.0) % Lymph # (Auto) 1.07 L (1.10-4.50) K/mm3 Sandoval # (Auto) 0.35 (0.10-0.90) K/mm3 Eos # (Auto) 0.04 (0.02-0.50) K/mm3 Baso # (Auto) 0.02 (0.00-0.10) K/mm3 Abs Immat Gran (auto) 0.00 (0.00-0.00) K/mm3 Absolute Neuts (auto) 1.37 L (1.70-7.20) K/mm3 Absolute Nucleated RBC 0.00 (0.00-0.00) K/mm3 Nucleated RBC % 0.0 (0-0.0) % Sodium 131 L (136-145) mmol/L Potassium 4.4 (3.5-5.1) mmol/L Chloride 94 L (98-108) mmol/L Carbon Dioxide 29 (21-32) mmol/L Anion Gap 8 (4-12) mmol/L BUN 13 (7-18) mg/dL Creatinine 0.81 (0.55-1.02) mg/dL Estim Creat Clear Calc 47 ml/min Estimated GFR > 60 (59 - ) Glucose 86 (70-99) mg/dL Calculated Osmolality 271 L (285-295) mOsm/kg Calcium 8.7 (8.5-10.1) mg/dL Total Bilirubin 0.7 (0.00-1.00) mg/dL AST 26 (15-37) U/L ALT 25 (14-59) U/L Alkaline Phosphatase 72 (46-116) U/L Troponin I 5.0 (0.00-60.4) ng/L Total Protein 7.1 (6.4-8.2) g/dL Albumin 3.9 (3.4-5.0) g/dL ECG Data EKG #1: ECG completion date: 10/12/24 ECG completion time: 10:21 Interpretation: Sinus bradycardia. Normal axis. No ST elevation. Discharge Plan Discharge Clinical Impression: Atypical chest pain Neutropenia Qualifiers: Neutropenia type: unspecified Qualified Code(s): D70.9 - Neutropenia, unspecified TMJ arthralgia Qualifiers: Laterality: bilateral Qualified Code(s): M26.623 - Arthralgia of bilateral temporomandibular joint Patient Disposition: Home, Self-Care Condition: Stable Instructions: Antibiotic Form, Temporomandibular Disorder (ED), Neutropenia (ED), Chest Wall Pain (ED) Patient Language: French Prescriptions: No Action aspirin [Yuniel Chewable Aspirin] 81 mg tablet,chewable 81 mg PO DAILY Betimol 0.5 % drops 1 drp EACH EYE Q12H Centrum Silver Women 8 mg iron-400 mcg-300 mcg tablet 1 tablet PO DAILY cyclobenzaprine 10 mg tablet 10 mg PO .HS Restasis 0.05 % dropperette 1 drp EACH EYE Q12H rosuvastatin 5 mg tablet 5 mg PO DAILY triamcinolone acetonide 0.1 % cream 1 applic topical BID dexlansoprazole 30 mg capsule,biphase delayed releas 30 mg PO DAILY magnesium citrate,mag oxide 250 mg capsule PO meclizine 25 mg tablet 25 mg PO BID PRN B Complex Plus Vitamin C [id number] mg capsule 1 cap PO DAILY Rx Instructions: give with food (meal/snack) [id number]-[id number]-C-Mn 500-400-667 mg-mg-unit capsule PO cholestyramine (with sugar) 4 gram powder PO tocophersolan (vitamin E TPGS) 75 unit/mL drops PO Probiotic 3 billion cell capsule 3,000 mmu cells PO DAILY Rx Instructions: administer with a meal Aimovig Autoinjector 140 mg/mL auto-injector 140 mg subcut MONTHLY Qty: 1 6RF Ubrelvy 100 mg tablet See Rx Instructions .ROUTE .COMPLEX Qty: 10 3RF Dose Instruction: TAKE 1 TABLET BY MOUTH NEEDED FOR MIGRAINE MAY TAKE ADDITIONAL DOSE 2 HOURS AFTER IF NEEDED Rx Instructions: TAKE 1 TABLET BY MOUTH NEEDED FOR MIGRAINE MAY TAKE ADDITIONAL DOSE 2 HOURS AFTER IF NEEDED Follow-up/Referrals: Zuleyma Motley MD [Primary Care Provider] - Time of Disposition: 11:40
[2024-10-12 11:01] LABS: Basophils Absolute Auto 0.02 K/mm3 (0.00-0.10); Basophils Percent Auto 0.7 % (0.0-1.0); Eosinophils Absolute Auto 0.04 K/mm3 (0.02-0.50); Eosinophils Percent Auto 1.4 % (1.0-6.0); Hematocrit 35.1 % (35.0-42.0); Hemoglobin 11.7 g/dL (11.7-13.8); Lymphocytes Absolute Auto 1.07 K/mm3 (1.10-4.50); Lymphocytes Percent Auto 37.5 % (18.0-42.0); Mean Corpuscular HGB Conc 33.3 g/dL (32-36); Mean Corpuscular Hemoglobin 31.1 pg (27.0-31.0); Mean Corpuscular Volume 93.4 fL (78.0-102.0); Mean Platelet Volume 9.2 fl (9.2-11.8); Monocytes Absolute Auto 0.35 K/mm3 (0.10-0.90); Monocytes Percent Auto 12.3 % (2.0-11.0); Neutrophils Absolute Auto 1.37 K/mm3 (1.70-7.20); Neutrophils Percent Auto 48.1 % (50.0-70.0); Platelet Count Result 210 K/mm3 (150-420); Red Blood Count 3.76 M/mm3 (4.20-5.40); Red Cell Distribution Width 12.7 % (11.6-14.4); White Blood Count 2.9 K/mm3 (4.8-10.8)
[2024-10-12 11:22] LABS: Alanine Aminotransferase 25 U/L (14-59); Albumin Level 3.9 g/dL (3.4-5.0); Alkaline Phosphatase 72 U/L (46-116); Anion Gap 8 mmol/L (4-12); Aspartate Amino Transferase 26 U/L (15-37); Bilirubin,Total 0.7 mg/dL (0.00-1.00); Blood Urea Nitrogen 13 mg/dL (7-18); Calcium 8.7 mg/dL (8.5-10.1); Carbon Dioxide 29 mmol/L (21-32); Chloride 94 mmol/L (98-108); Estimated CRCL calculation 47 ml/min; Estimated Glomerular Filt Rate > 60; Glucose 86 mg/dL (70-99); Osmolality Calculated 271 mOsm/kg (285-295); Potassium 4.4 mmol/L (3.5-5.1); Sodium 131 mmol/L (136-145); Total Protein 7.1 g/dL (6.4-8.2)
--- OUTSIDE RECORDS SUMMARY | 2024-10-12 11:22 | XMS_ITS | Clinical Summary ---
Author Organization [facility] Address [address] [place] [address] Care Team Providers Care Automatic Nailing Machine Operator Name Role Phone Zuleyma Motley MD Primary Care Provider [phone] Allergies Active Allergy Reactions Criticality Noted Date [...] Date NSTEMI (non-ST elevated myoc ardial infarction) ([facility]/HCC [facility]) 08/18/2024 Encounters Date Type Department Care Team Description 10/02/2024 Telephone [facility] [address] [place] [address] Estela Mera, ANP-BC Lab Results 10/01/2024 8:17 AM PERINATAL NURSE - 10/01/2024 11:59 PM [facility] Hospital Encounter [facility] [address] [place] [address] Estela Mera, ANP-BC Discharge Disposition: Home or Self Care (Routine Discharge) 10/01/2024 Travel 09/26/2024 Telephone [facility] [address] [place] [address] Estela Mera, ANP-BC Record Request ([facility] - [facility]iop[facility]) 09/17/2024 Telephone [facility] [address] [place] [phone] Estela Mera, ANP-BC Refill Request; Question 09/15/2024 Telephone [facility] [address] [place] [phone] Estela Mera, ANP-BC Schedule Test 09/10/2024 2:24 PM PERINATAL NURSE - 09/10/2024 11:59 PM PERINATAL NURSE Hospital Encounter [facility] [address] [facility] [place] [address] Estela Mera, ANP-BC Discharge Disposition: Home or Self Care (Routine Discharge) 09/10/2024 Travel 09/08/2024 2:30 PM PERINATAL NURSE Office Visit [facility] [address] [place] [address] Estela Mera, ANP-BC Follow Up 09/08/2024 Travel 08/29/2024 Telephone [facility] [address] [place] [address] Marisela Raymond MD Question 08/18/2024 4:07 PM PERINATAL NURSE - 08/20/2024 11:15 AM PERINATAL NURSE Hospital Encounter [facility] [address] [place] [address] Sea Wadsworth MD Sonani, Bhavin V., MD Yaseen, Maryam, MD Discharge Disposition: Home or Self Care (Routine Discharge) 08/18/2024 11:09 AM PERINATAL NURSE - 08/18/2024 2:30 PM PERINATAL NURSE Emergency [facility] [address] [place] [address] Kathy Ibrahim DO Urinary Frequency; Chest Pain [...] from your doctor or pharmacy? Never 08/18/2024 [facility] Utilities Answer Date Recorded In the past 12 months has [facility] [employer], oil, or water [employer] threatened to shut off services in your [...] any time in the past 12 m [facility], were you homeless or living in a fpc (including now)? No 08/18/2024 Comments No Sex and Gender Information Value Date Recorded Sex Assigned at Female 09/10/2024 2:22 PM PERINATAL NURSE Legal Sex Female 10:54 PM PERINATAL NURSE Gender Identity Female 11/01/2021 6:23 AM PERINATAL NURSE Sexual Orientation Straight 11/01/2021 6: 23 AM PERINATAL NURSE Last Filed Vital Signs Vital Sign Reading Time Taken Comments Blood Pressure 110/60 09/08/2024 2:40 PM PERINATAL NURSE Pulse 56 09/08/2024 2:35 PM PERINATAL NURSE Temperature 36.6 C (97.9 F) 08/20/2024 7:33 AM PERINATAL NURSE Respiratory Rate 16 09/08/2024 2:35 PM PERINATAL NURSE Oxygen Saturation 100% 08/20/2024 7:33 AM PERINATAL NURSE Inhaled Oxygen Concentration - - Weight 56.7 kg (125 lb) 09/08/2024 2:35 PM PERINATAL NURSE Height 162.6 cm (5' 4 ) 09/08/2024 2:35 PM PERINATAL NURSE Body Mass Index 21.46 09/08/2024 2:35 PM PERINATAL NURSE Plan of Treatment Upcoming Encounters Date Type Department Care Team (Late st Contact Info) Description 10/13/2024 3:00 PM [address]INATAL NURSE [address] [facility] [address] [place] [address] Estela Mera, ANP-BC [address] [place] [address] 11/11/2024 9:[address] [facility] [address] [place] [address] Madalyn Mackenzie, PA-C [address] [place] [address] Health Maintenance Due Date Last Done Comments [...] BASIC METABOLIC PANEL Routine 10/01/2024 8:24 AM PERINATAL NURSE Takotsubo cardiomyopathy Coronary artery disease involving penobscot coronary artery of penobscot heart without angina pectoris Abnormal kidney function BASIC METABOLIC PANEL Routine 09/10/2024 2:40 PM PERINATAL NURSE Coronary artery disease involving penobscot coronary artery of penobscot heart without angina pectoris Takotsubo cardiomyopathy PROTHROMBIN TIME, VENOUS Routine 08/20/2024 6:48 AM PERINATAL NURSE CBC, AUTO, NO DIFF Routine 08/20/2024 6: 48 AM PERINATAL NURSE BASIC METABOLIC PANEL Routine 08/20/2024 6:48 AM PERINATAL NURSE USE ECHOCARDIOGRAM W CON Today 08/19/2024 11:20 AM PERINATAL NURSE XA LHC POSS Today 08/19/2024 8:58 AM PERINATAL NURSE HEPARIN, ANTI XA, UFH TIMED 08/19/2024 6:31 AM PERINATAL NURSE PROTHROMBIN TIME, VENOUS Routine 08/19/2024 6:31 AM PERINATAL NURSE MAGNESIUM Routine 08/19/2024 6:31 AM PERINATAL NURSE BASIC METABOLIC PANEL Routine 08/19/2024 6:31 AM PERINATAL NURSE CBC W/DIFF AUTOMATED Routine 08/19/2024 6:31 AM PERINATAL NURSE HEPARIN, ANTI XA, UFH TIMED 08/19/2024 12:02 AM PERINATAL NURSE TROPONIN, QUANT TIMED 08/19/2024 12:02 AM PERINATAL NURSE PROTHROMBIN TIME, VENOUS STAT 08/18/2024 5:01 PM PERINATAL NURSE HEPARIN, ANTI XA, UFH STAT 08/18/2024 5:01 PM PERINATAL NURSE TROPONIN, QUANT TIMED 08/18/2024 5:01 PM PERINATAL NURSE ECG 12-LEAD Routine 08/18/2024 4:53 PM PERINATAL NURSE TROPONIN, QUANT STAT 08/18/2024 1:12 PM PERINATAL NURSE HC URINALYSIS AUTO W/MICRO STAT 08/18/2024 12:50 PM PERINATAL NURSE XR CHEST PA+LAT STAT 08/18/2024 12:[address] ABD+PEL W CON STAT 08/18/2024 11:5 8 AM PERINATAL NURSE CRITICAL CARE Routine 08/18/2024 11:41 AM PERINATAL NURSE HEPARIN, ANTI XA, UFH STAT 08/18/2024 11:41 AM PERINATAL NURSE TROPONIN, QUANT STAT 08/18/2024 11:41 AM PERINATAL NURSE LIPASE STAT 08/18/2024 11:41 AM PERINATAL NURSE COMPREHENSIVE METABOLIC PANEL STAT 08/18/2024 11:41 AM PERINATAL NURSE CBC W/DIFF AUTOMATED STAT 08/18/2024 11:41 AM PERINATAL NURSE PROTHROMBIN TIME, VENOUS STAT 08/18/2024 11:40 AM PERINATAL NURSE ECG 12-LEAD Routine 08/18/2024 11:17 AM PERINATAL NURSE MG SCREENING W BRUCE LORENE DIGI Routine 11/06/2023 8:54 AM CDT Visit for screening mammogram BONE DENSITY/DEXA Routine 11/28/2022 9:3 4 AM CDT Post-menopausal COLONOSCOPY 01/03/2022 6:52 AM CDT from Last 3 Months or Most Recently Relevant to Health Maintenance Results * (ABNORMAL) BASIC METABOLIC PANEL (10/01/2024 8:24 AM [facility]) Only the most recent of4 resultswithin the time period is included. SODIUM S/P/B 133(L) 136 - 145 MMOL/L 10/01/2024 8:40 AM [facility] POTASSIUM S/P/B 4.6 3.5 - 5.1 MMOL/L 10/01/2024 8:40 AM [facility] CHLORIDE S/P/B 97(L) 98 - 107 MMOL/L 10/01/2024 8:40 AM [facility] CO2 29.3 21.0 - 32.0 MMOL/L 10/01/2024 8:40 AM [facility] GLUCOSE 85 70 - 99 MG/DL 10/01/2024 8:40 AM [facility] Comment: FASTING GLUCOSE 100 TO 125 MG/DL IS CONSISTENT WITH IMPAIRED FASTING GLUCOSE. FASTING GLUCOSE >125 MG/DL IS CONSISTENT WITH DIABETES. RANDOM GLUCOSE >200 MG/DL WITH HYPERGLYCEMIC SYMPTOMS IS CONSISTENT WITH DIABETES. PER ADA GUIDELINES BUN 11 6 - 24 MG/DL 10/01/2024 8:40 AM [facility] CREATININE S/P/B 0.72 0.55 - 1.02 MG/DL 10/01/2024 8:40 AM [facility] CALCIUM S/P/B 9.1 8.4 - 10.5 MG/DL 10/01/2024 8:40 AM [facility] ANION GAP 6.7 5.0 - 15.0 MMOL/L 10/01/2024 8:40 AM [facility] OSMOLALITY (CALC) 275 MOSM/KG 025 8:40 AM [facility] Comment:REFERENCE RANGE NOT ESTABLISHED GFR ESTIMATE 89(L) >89 ML/MIN/1. 73 M2 10/01/2024 8:40 AM [facility] GFR NOTES GFR REFERENCE S: 10/01/2024 8:40 AM [facility] Comment: THE ESTIMATED GFR IS CALCULATED [...] FAILURE: <15 ml/min/1.73 m2 10/01/2024 8:24 AM PERINATAL NURSE Estela Mera [facility]ORAT[facility] Final Re sult [facility] [address] [place] [address], * PROTIME/INR, VENOUS (PROTHROMBIN TIME) (08/20/2024 6:48 AM PERINATAL NURSE) Only the most recent of4 resultswithin the time period is included. PROTIME 10.9 9.4 - 12.5 SEC 08/20/2024 7:21 AM PERINATAL NURSE [facility] INR 0.9 0.8 - 1.1 08/20/2024 7:21 AM PERINATAL NURSE [facility] 08/20/2024 6:48 AM PERINATAL NURSE Pallavi Montoya MD LABORATORY Final Result [facility] [address] [place] [address], [place] [phone] * (ABNORMAL) CBC, AUTO, NO DIFF (08/20/2024 6:48 AM PERINATAL NURSE) WBC 4.29 4.00 - 10.80 x10'3/uL 08/20/2024 6:58 AM PERINATAL NURSE [facility] RBC 3.92(L) 4.10 - 5.40 x10'6/uL 08/20/2024 6:58 AM PERINATAL NURSE [facility] HGB 12.5 12.0 - 16.0 G/DL 08/20/2024 6:58 AM [facility] HCT 36.9 36.0 - 47.0 % 08/20/2024 6:58 AM PERINATAL NURSE [facility] MCV 94.1 78.0 - 100.0 FL 08/20/2024 6:58 AM PERINATAL NURSE [facility] MCH 31.9(H) 27.0 - 31.0 PG 08/20/2024 6:58 AM PERINATAL NURSE [facility] MCHC 33.9 33.0 - 36.0 G/DL 08/20/2024 6:58 AM [facility] RDW 12.7 11.5 - 14.5 % 08/20/2024 6:58 AM [facility] PLT SEE NOTE 150 - 350 x10'3/uL 08/20/2024 7:14 AM PERINATAL NURSE [facility] Comment: Platelet clumps present. Estimate from slide appears to be within normal range. Reorder Platelet Count if actual value is clinically significant. 08/20/2024 6:48 AM PERINATAL NURSE Pallavi Montoya MD LABORATORY Final Result [facility] [address] [place] [address], [id number] * USE ECHOCARDIOGRAM W CON (08/19/2024 11:20 AM PERINATAL NURSE) Anatomical Region Laterality Modality NA Echocardiogram 08/19/2024 10:1 1 AM PERINATAL NURSE Narrative 08/19/2024 6:08 PM PERINATAL NURSE Echocardiography Report Pat.Name: LATOSHA HERNÁNDEZ Pat.ID: [id number] .Date: 08/19/2024 : [id number] PATRICE HADPROV EWDPROV Exam Time: 10:11:00 AM [...] Mass 2D Value 98.2 g LV Mass [id number] Value 61.8 g/m2 Right Ventricle Right Ventricle [...] Echocardiography Report Pat.Name: EDGAR LATOSHA Smith Pat.ID: [id number] .Date: 08/19/2024 : [id number] PATRICE CHAVEZ EWDPROV EWDPROV Exam Time: 10:11:00 AM Study Type:ECHO W/CONTRAST COMPLETE Height: 64 in Weight: 123 lb BSA: 1.59 m2 Age: 12 1950,73Y Sex: F BP: 117/60 HR: 59 bpm Sonogrphr: Ricki Aarya [facility] Pat. Stat.:Inpatient Room: 614 CPT [...] Mass 2D Value 98.2 g LV Mass [id number] Value 61.8 g/m2 Right Ventricle Right Ventricle [...] Sotomayor MD ECHO Final Result * XA [facility] POSS (08/19/2024 8:58 AM PERINATAL NURSE) Anatomical Region Laterality Modality Cardiac Social Scientist 08/19/2024 8:05 AM PERINATAL NURSE us Marisela Raymond MD EROSION CONTROL SPECIALIST Final Result * HEPARIN, ANTI XA, UFH (08/19/2024 6:31 AM PERINATAL NURSE) Only the most recent of4 resultswithin the time period is included. HEPARIN ANTI XA UFH 0.34 0.30 - 0.70 IU/ML 08/19/2024 7:24 AM [facility] Comment: UFH Therapeutic Anti Xa Ranges: Medical Therapeutic Range: 0.30 - 0.70 IU/mL Cardiac Therapeutic Range: 0.30 - 0.50 IU/mL Neuro Therapeutic Range: 0.20 - 0.40 IU/mL 08/19/2024 6:31 AM PERINATAL NURSE Fei Sotomayor MD LABORATORY Final Result [facility] [address] [place] [address], [id number] * (ABNORMAL) CBC W/DIFF AUTOMATED (08/19/2024 6:31 AM PERINATAL NURSE) Only the most recent of2 resultswithin the time period is included. WBC 5.29 4.00 - 10.80 x10'3/uL 08/19/2024 7:03 AM [facility] RBC 3.75(L) 4.10 - 5.40 x10'6/uL 08/19/2024 7:03 AM [facility] HGB 11.8(L) 12.0 - 16.0 G/DL 08/19/2024 7:03 AM [facility] HCT 34.3(L) 36.0 - 47.0 % 08/19/2024 7:03 AM [facility] MCV 91.5 78.0 - 100.0 FL 08/19/2024 7:03 AM [facility] MCH 31.5(H) 27.0 - 31.0 PG 08/19/2024 7:03 AM [facility] MCHC 34.4 33.0 - 36.0 G/DL 08/19/2024 7:03 AM [facility] RDW 12.5 11.5 - 14.5 % 08/19/2024 7:03 AM [facility] PLT 270 150 - 350 x10'3/uL 08/19/2024 7:03 AM [facility] MPV 9.4 7.4 - 10.4 FL 08/19/2024 7:03 AM [facility] DIFFERENTIAL TYPE AUTOMATED DIFFERENTIAL 08/19/2024 7:03 AM [facility] SEG NEUTROPHILS 59.8 % 7:03 AM [facility] LYMPHOCYTES 28.0 % 08/19/2024 7:03 AM [facility] MONOCYTES 10.8 % 08/19/2024 7:03 AM [facility] EOSINOPHILS 0.8 % 08/19/2024 7:03 AM [facility] BASOPHILS 0.2 % 08/19/2024 7:03 AM [facility] IMMATURE GRANS % 0.4 % 08/19/20 7:03 AM [facility] ABS. NEUTROPHILS 3.17 1.60 - 8.30 x10'3/uL 08/19/2024 7:03 AM [facility] ABS. LYMPHOCYTES 1.48 0.80 - 4.70 x10'3/uL 08/19/2024 7:03 AM [facility] ABS. MONOCYTES 0.57 0.00 - 1.50 x10'3/uL 08/19/2024 7:03 AM [facility] ABS. EOSINOPHILS 0.04 0.00 - 0.40 x10'3/uL 08/19/2024 7:03 AM [facility] ABS. BASOPHILS 0.01 0.00 - 0.20 x10'3/uL 08/19/2024 7:03 AM [facility] ABS. IMMATURE GRANULOCYTES 0.02 0.00 - 0.03 x10'3/uL 08/19/2024 7:03 AM [facility] ABS. NUCLEATED RBC'S 0.00 0.00 - 0.01 x10'3/uL 08/19/2024 7:03 AM PERINATAL NURSE [facility] NRBC % 0.0 % 08/19/2024 7:03 AM PERINATAL NURSE [facility] 08/19/2024 6:31 AM PERINATAL NURSE us Fei Sotomayor MD LABORATORY Final Result Performing Organization Address [facility] de Phone Number [facility] [address] [place] [address], [id number] * MAGNESIUM (08/19/2024 6:31 AM PERINATAL NURSE) MAGNESIUM 1.9 1.6 - 2.6 MG/DL 08/19/2024 7:25 AM PERINATAL NURSE [facility] 08/19/2024 6:31 AM PERINATAL NURSE us Fei Sotomayor MD LABORATORY Final Result Performing Organization Address [facility] de Phone Number [facility] [address] [place] [address], [id number] * (ABNORMAL) TROPONIN, QUANT (08/19/2024 12:02 AM PERINATAL NURSE) Only the most recent of4 resultswithin the time period is included. TROPONIN I HIGH SENSITIVITY 3,011(H) 0 - 53 ng/L 08/19/2024 1:04 AM PERINATAL NURSE [facility] 08/19/2024 12:0 2 AM PERINATAL NURSE us Fei Sotomayor MD LABORATORY Final Result Performing Organization Address [facility] de Phone Number [facility] [address] [place] [address], [place] [phone] * ECG 12 lead (08/18/2024 4:53 PM PERINATAL NURSE) Only the most recent of2 resultswithin the time period is included. 08/18/2024 4:53 PM PERINATAL NURSE Narrative [facility] - 08/19/2024 10:34 AM PERINATAL NURSE [facility] [address] [place] [address] Test Date: 2024-08-18 Pat Name: LATOSHA HERNÁNDEZ Department: 1 Room: 61A Gender: Female Ore Miner: Abdirashid Marr : 1950 Requested By: FEI SOTOMAYOR Order Number: [id number] Reading MD: Harpal Wilcox Measurements Intervals Walker Rate: 68 P: 73 WV: 155 QRS: 32 QRSD: 99 T: 55 QT: 426 QTc: 455 Interpretive Statements SINUS RHYTHM INCOMPLETE RIGHT BUNDLE BRANCH BLOCK [90+ ms QRS DURATION, TERMINAL R IN V1/V2, 40+ ms S IN I/aVL/V4/V5/V6] NATAL NURSE Procedure Note Harpal Wilcox MD - 08/19/2024 [place] [address] [place] [address] Test Date: 2024-08-18 Pat Name: LATOSHA HERNÁNDEZ Department: 1 Room: 61A Gender: Female Ore Miner: Abdirashid Marr : 1950 Requested By: FEI SOTOMAYOR Order Number: [id number] Reading : Harpal Wilcox Measurements Intervals Walker Rate: 68 P: 73 WV: 155 QRS: 32 QRSD: 99 T: 55 QT: 426 QTc: 455 Interpretive Statements SINUS RHYTHM INCOMPLETE RIGHT BUNDLE BRANCH BLOCK [90+ ms QRS DURATION, TERMINAL RIN V1/V2, 40+ ms S IN I/aVL/V4/V5/V6] NATAL NURSE us Fei Sotomayor MD ECG ORDERABLES Final Result [facility] * (ABNORMAL) URINALYSIS (08/18/2024 12:50 PM PERINATAL NURSE) COLOR (U) YELLOW 08/18/2024 1:03 PM PERINATAL NURSE [facility] TRANSPARENCY CLEAR 08/18/2024 1:03 PM PERINATAL NURSE [facility] SPECIFIC GRAVITY (U) 1.015 1.000 - 1.025 08/18/2024 1:03 PM PERINATAL NURSE [facility] U PH 7.5 5.0 - 8.0 08/18/2024 1:03 PM PERINATAL NURSE [facility] LEUKOCYTES (U) NEGATIVE NEGATIVE 08/18/2024 1:03 PM PERINATAL NURSE [facility] NITRITES NEGATIVE NEGATIVE 08/18/2024 1:03 PM PERINATAL NURSE [facility] PROTEIN RANDOM (U) NEGATIVE NEGATIVE 08/18/2024 1:03 PM PERINATAL NURSE [facility] GLUCOSE (U) NEGATIVE NEGATIVE 08/18/2024 1:03 PM PERINATAL NURSE [facility] KETONES MG/DL (U) TRACE(A) NEGATIVE 08/18/2024 1:03 PM PERINATAL NURSE [facility] UROBILINOGEN 0.2 <1.0 EU/DL 08/18/2024 1:03 PM PERINATAL NURSE [facility] BILIRUBIN (U) NEGATIVE NEGATIVE 08/18/2024 1:03 PM PERINATAL NURSE [facility] BLOOD (U) NEGATIVE NEGATIVE 08/18/2024 1:03 PM PERINATAL NURSE [facility] WBC/HPF NONE SEEN(A) 0 - 5 /HPF 08/18/2024 1:03 PM PERINATAL NURSE [facility] EPI/LPF RARE /LPF 08/18/2024 1:03 PM PERINATAL NURSE [facility] URINE SPECIMEN OBTAINED BY CLEAN CATCH PROCEDURE / Unknown 08/18/2024 12:50 PM PERINATAL NURSE us Kathy Ibrahim DO URINE ORDERABLES Final Result [facility] [address] [place] [address], * XR CHEST PA+LAT (08/18/2024 12:04 PM PERINATAL NURSE) Anatomical Region Laterality Modality Chest Radiographic Henna ging 08/18/2024 12:1 9 PM PERINATAL NURSE Impressions 08/18/2024 12:20 PM PERINATAL NURSE IMPRESSION: No acute findings. Ordered By: KATHY IBRAHIM Interpreted By: Jaxon Garza MD, 08/18/2024 12:19 PM Narrative 08/18/2024 12:20 PM PERINATAL NURSE [address] [place] [address] Examination: Chest x-ray 2 view Exam time: [...] Procedure Note Jaxon Garza MD - 08/18/[address] [place] [address] Examination: Chest x-ray 2 view Exam time: [...] CT ABD+PEL W CON (08/18/2024 11:58 AM PERINATAL NURSE) Anatomical Region Laterality Modality Abdomen Computed Tomogra phy 08/18/2024 12:1 5 PM PERINATAL NURSE Impressions 08/18/2024 12:19 PM PERINATAL NURSE Impression: No acute urinary tract finding. Moderate feces burden. No acute GI tract disease. Diffuse fatty liver disease. Left-sided gonadal vein/pelvic congestion. Ordered By: KATHY IBRAHIM Interpreted By: Jaxon Garza MD, 08/18/2024 12:15 PM Narrative 08/18/2024 12:19 PM PERINATAL NURSE [address] [place] [address] Examination: CT abdomen and pelvis with IV [...] Procedure Note Jaxon Garza MD - 08/18/[address] [id number] [facility] [place] [address] Examination: CT abdomen and pelvis with IV [...] Result * Critical Care (08/18/2024 11:41 AM PERINATAL NURSE) Kathy Rosado DO - 08/18/2024 11:41 AM [...] (ABNORMAL) COMPREHENSIVE METABOLIC PANEL (08/18/2024 11:41 AM PERINATAL NURSE) SODIUM S/P/B 132(L) 136 - 145 MMOL/L 08/18/2024 12:11 PM [facility] POTASSIUM S/P/B 4.3 3.5 - 5.1 MMOL/L 08/18/2024 12:11 PM [facility] CHLORIDE S/P/B 96(L) 98 - 107 MMOL/L 08/18/2024 12:11 PM [facility] CO2 28.7 21.0 - 32.0 MMOL/L 08/18/2024 12:11 PM [facility] GLUCOSE 100(H) 70 - 99 MG/DL 08/18/2024 12:11 PM [facility] Comment: FASTING GLUCOSE 100 TO 125 MG/DL IS CONSISTENT WITH IMPAIRED FASTING GLUCOSE. FASTING GLUCOSE >125 MG/DL IS CONSISTENT WITH DIABETES. RANDOM GLUCOSE >200 MG/DL WITH HYPERGLYCEMIC SYMPTOMS IS CONSISTENT WITH DIABETES. PER ADA GUIDELINES BUN 17 6 - 24 MG/DL 08/18/2024 12:11 PM [facility] CREATININE S/P/B 0.80 0.55 - 1.02 MG/DL 08/18/2024 12:11 PM [facility] CALCIUM S/P/B 8.5 8.4 - 10.5 MG/DL 08/18/2024 12:11 PM [facility] BILIRUBIN TOTAL S/P/B 0.5 0.2 - 1.0 MG/DL 08/18/2024 12:11 PM [facility] Comment: THIS ASSAY IS NOT RECOMMENDED FOR PATIENTS UNDERGOING TREATMENT WITH ELTROMBOPAG DUE TO THE POTENTIAL FOR FALSELY ELEVATED RESULTS. ALKALINE PHOSPHATASE S/P/B 82 55 - 142 U/L 08/18/2024 12:11 PM [facility] AST 26 15 - 37 U/L 08/18/2024 12:11 PM [facility] ALT 24 14 - 59 U/L 08/18/2024 12:11 PM [facility] TOTAL PROTEIN S/P/B 6.9 6.4 - 8.2 G/DL 08/18/2024 12:11 PM [facility] ALBUMIN S/P/B 3.5 3.4 - 5.0 G/DL 08/18/2024 12:11 PM [facility] ANION GAP 7.3 5.0 - 15.0 MMOL/L 08/18/2024 12:11 PM [facility] OSMOLALITY (CALC) 276 MOSM/KG 024 12:11 PM [facility] Comment:REFERENCE RANGE NOT ESTABLISHED GFR ESTIMATE 79(L) >89 ML/MIN/1. 73 M2 08/18/2024 12:11 PM [facility] GFR NOTES GFR REFERENCE S: 08/18/2024 12:11 PM [facility] Comment: THE ESTIMATED GFR IS CALCULATED [...] <15 ml/min/1.73 m2 08/18/2024 11:4 1 AM PERINATAL NURSE Kathy Ibrahim LABORATORY Final Result Performing Organization Address [facility] Co de Phone Number [facility] [address] [place] [id number], [place] [phone] * LIPASE (08/18/2024 11:41 AM PERINATAL NURSE) LIPASE 58 16 - 77 UNITS/L 08/18/2024 12:11 PM PERINATAL NURSE [facility] 08/18/2024 11:4 1 AM PERINATAL NURSE Kathy Ibrahim LABORATORY Final Result Performing Organization Address [facility] de Phone Number [facility] [address] [place] [id number], [place] [phone] * MG SCREENING W BRUCE LORENE DIGI [...] Page MD, 11/06/2023 4:45 PM us Madalyn Mackenzie PA-C MAMMO Final Resul t * BONE [...] 4:48 PM 08/20/2024 1:31 PM Care Teams Automatic Nailing Machine Operator Relationship Specialty Start Date End Date Zuleyma Motley MD [address] [place] [id number] PCP - General FAMILY PRACTICE 03/07/19
--- OUTSIDE RECORDS SUMMARY | 2024-10-12 11:22 | XMS_ITS | Clinical Summary ---
Author Organization [facility] Address Critical access hospital[address] [place] [address] Care Team Providers Care See Wheeler Name Role Phone Zuleyma Motley MD Primary Care Provider Madalyn Griffin Unavailable [phone] Allergies Active Allergy Reactions Criticality Noted Date [...] Department Care Team Description 07/17/2024 9:20 AM USER INTERFACE ARTIST - 07/17/2024 11:59 PM USER INTERFACE ARTIST Hospital Encounter [facility] [address] [place] [address] Liver fibrosis Discharge Disposition: Discharge to home or self care 07/17/2024 Telephone [facility] Gastroenterology [address] [facility] [address] [place] [address] [place] [id number] Anne Gibbons RN from Last 3 Months [...] on file Legal Sex Female 6:07 AM USER INTERFACE ARTIST Gender Identity Female 05/22/2024 10:07 PM CDT [...] Read Routine (OP Routine) 07/17/2024 11:14 AM USER INTERFACE ARTIST Liver fibrosis HEPATITIS C ANTIBODY Routine 02/21/2024 2:38 PM CDT Elevated liver enzymes from Last 3 Months or Most Recently Relevant to Health Maintenance Results * MRI Abdomen W WO Contrast With MR Elastography (C) (07/17/2024 11:14 AM USER INTERFACE ARTIST) Anatomical Region Laterality Modality Body N/A Magnetic Resonan ce 07/17/2024 11:5 8 AM USER INTERFACE ARTIST Impressions 07/17/2024 1:05 PM USER INTERFACE ARTIST No evidence of hepatic steatosis with normal liver elastography. Dictated by: Manuel Dey MD The radiology attending physician has personally reviewed this study, and had reviewed and/or edited this written report and agrees with it. Electronically signed by: Alonso Jones M.D., Ph.D Narrative 07/17/2024 1:05 PM USER INTERFACE ARTIST EXAMINATION: 1. MAGNETIC RESONANCE IMAGING OF THE [...] AL ORDERABLES Final Result [facility] Department [place] [address] from Last 3 Months or Most Recently Relevant to Health Maintenance Insurance T MEDICARE T MEDICARE Care Teams See Wheeler Relationship Specialty Start Date End Date [place] [address] [place] [place] [id number] PCP - General Family Medicine 12/21/23 [place] [address] [place] [address] Physician [facility] 12/21/23
--- OUTSIDE RECORDS SUMMARY | 2024-10-12 11:22 | XMS_ITS | Referral Summary ---
Author Organization [facility] Address [address] [place] [address] Care Team Providers Care Qa Developer Name Role Phone Zuleyma Motley MD Primary Care Provider Madalyn Griffin Unavailable Encounters Date Type Department Care Team Description 07/17/2024 Telephone [facility] Gastroenterology [address] [facility] [address]th [place] [address] [place] [address] Anne Gibbons, RIAZ 07/17/2024 9:20 AM ORIENTATION AND MOBILITY INSTRUCTOR - 07/17/2024 11:59 PM ORIENTATION AND MOBILITY INSTRUCTOR Hospital Encounter [facility] [address] [place] [address] Liver fibrosis Discharge Disposition: Discharge [...] on file Legal Sex Female 6:07 AM ORIENTATION AND MOBILITY INSTRUCTOR Gender Identity Female 05/22/2024 10:07 PM CDT [...] Read Routine (OP Routine) 07/17/2024 11:14 AM ORIENTATION AND MOBILITY INSTRUCTOR Liver fibrosis HEPATITIS C ANTIBODY Routine 02/21/2024 2:38 PM CDT Elevated liver enzymes from Last 3 Months or Most Recently Relevant to Health Maintenance Results * MRI Abdomen W WO Contrast With MR Elastography (C) (07/17/2024 11:14 AM ORIENTATION AND MOBILITY INSTRUCTOR) Anatomical Region Laterality Modality Body N/A Magnetic Resonan ce 07/17/2024 11:5 8 AM ORIENTATION AND MOBILITY INSTRUCTOR Impressions 07/17/2024 1:05 PM ORIENTATION AND MOBILITY INSTRUCTOR No evidence of hepatic steatosis with normal liver elastography. Dictated by: Manuel Dey MD The radiology attending physician has personally reviewed this study, and had reviewed and/or edited this written report and agrees with it. Electronically signed by: Alonso Jones M.D., Ph.D Narrative 07/17/2024 1:05 PM ORIENTATION AND MOBILITY INSTRUCTOR EXAMINATION: 1. MAGNETIC RESONANCE IMAGING OF THE ABDOMEN WITH AND WITHOUT CONTRAST 2. MR LIVER ELASTOGRAPHY HISTORY: Concern for fibrosis. TECHNIQUE: Magnetic resonance imaging of the abdomen was performed prior to and following the uneventful administration of intravenous Gadolinium contrast. MR elastography was performed using the [employer] system. Protocol: Routine liver with elastography Contrast: [...] contrast. MR elastography was performed using the [employer] system. Protocol: Routine liver with elastography Contrast: [...] MICROBIOLOGY - GENER AL ORDERABLES Final Result [facility] [place] [address] from Last 3 Months or Most Recently Relevant to Health Maintenance Insurance [facility] MEDICARE T MEDICARE Care Teams Qa Developer Relationship Specialty Start Date End Date Zuleyma Motley MD [address] [place] [address] PCP - General Family Medicine 12/21/23 Madalyn Griffin PA [address] [place] [id number] Physician Fuel Truck Driver Family Medicine 12/21/23
== END 2024-10-12 11:49 | disposition home or self-care (01) ==
PROVIDERS: Emergency Provider Internal Medicine Critical Care Medicine; PCP Family Medicine
DX: R07.89 Other chest pain (principal); D70.9 Neutropenia, unspecified; M26.623 Arthralgia of bilateral temporomandibular joint; I10 Essential (primary) hypertension; E78.5 Hyperlipidemia, unspecified
CPT/HCPCS: 36415; 71045; 80053; 84484; 85025; 93005; 99284

== ENCOUNTER 2024-12-26 09:30 | Outpatient (RCR) | payer MEDICARE, SELFPAY ==
[2024-09-25 15:23] VITALS: BP 97/59; PULSE 53; RESP 16; O2SAT 99; BMI 21.1
== END 2024-12-26 10:45 | disposition home or self-care (01) ==
PROVIDERS: PCP Family Medicine; Visit Provider Family Medicine
DX: I21.4 Non-ST elevation (NSTEMI) myocardial infarction (principal); Z51.89 Encounter for other specified aftercare
CPT/HCPCS: 93798